=== PATIENT | female | born 1960 | race Caucasian/White ===

== ENCOUNTER 2017-01-30 14:07 | Emergency (ER) | payer OTHER ==
[~2017-01-30] VITALS: Ht 170.2 cm; Wt 61.0 kg
[~2017-01-30 14:07] MED LIST: CHLO10 PO; CHLO25 PO; FOLI1 PO; THIA100T PO
[2017-01-30 14:19] VITALS: BP 140/88; PULSE 80; RESP 19; TEMP 98.2; O2SAT 100
[2017-01-30 14:23] VITALS: BP 140/88; PULSE 99
[2017-01-30] MEDS ORDERED: LOSA50TA PO (14:27)
--- NOTE | 2017-01-30 14:36 | PD ---
HPI Chief Complaint: Alcohol/Drug Intoxication Time Seen by Provider: 14:26 Travel History International Travel<30 days: No Contact w/Intl Traveler<30days: No History of Present Illness HPI 56-year-old female here for evaluation of alcohol withdrawal. Patient reports to drinking at least 12 beers per day for the last several days. She reports a history of EtOH abuse and has experienced seizures in the past when withdrawing. She reports her last drink was last night. She is complaining of tremors nausea, vomiting. She is alert and answers questions appropriately. She comes in via EMS. Her vital signs are stable. She is tremulous. [facility] Past Medical History Anxiety: Yes Cardiovascular Problems: Yes Diminished Hearing: No Hypertension: Yes Pancreatitis: Yes ?: Not Menopausal: Yes Past Surgical History Other Surgery: Yes (BREAST REDUCTION) Social History Alcohol Use: Yes (1 PINT PER DAY) Tobacco Use: No (PT DENIES) Substance Use: Yes (LORTAB) Allergies-Medications (Allergen,Severity, Reaction): Coded Allergies: No Known Allergies (Unverified , 10/28/13) Reported Meds & Prescriptions Reported Meds & Active Scripts Active Chlordiazepoxide HCl 25 Mg Capsule 25 Mg PO TID Librium 10 mg Cap (Chlordiazepoxide) 10 Mg Cap 10 Mg PO ONCE 10 Days Thiamine HCl 100 Mg Tab 100 Mg PO DAILY Folate 1 Mg Tab (Folic Acid) 1 Mg Tab 1 Mg PO DAILY Librium 25 mg Cap (Chlordiazepoxide) 25 Mg Cap 25 Mg PO DAILY Reported Losartan (Losartan Potassium) 50 Mg Tab 50 Mg PO DAILY Review of Systems Except as stated in HPI: all other systems reviewed are Neg General / Constitutional: No: Fever Eyes: No: Visual changes HENT: No: Headaches Cardiovascular: No: Chest Pain or Discomfort Respiratory: No: Shortness of Breath Gastrointestinal: Positive: Nausea, Vomiting Neurologic: Positive: Tremor Psychiatric: Positive: Anxiety Physical Exam Narrative GENERAL: alert disheveled appearing female mildly tremulous SKIN: Warm and dry. HEAD: Normocephalic. EYES: No scleral icterus. No injection or drainage. NECK: Supple, trachea midline. No JVD or lymphadenopathy. CARDIOVASCULAR: Regular rate and rhythm without murmurs, gallops, or rubs. RESPIRATORY: Breath sounds equal bilaterally. No accessory muscle use. GASTROINTESTINAL: Abdomen soft, non-tender, nondistended. MUSCULOSKELETAL: No cyanosis, or edema. BACK: Nontender without obvious deformity. No CVA tenderness. Data Data Last Documented VS Vital Signs Date Time Temp Pulse Resp B/P (MAP) Pulse Ox O2 Delivery O2 Flow Rate FiO2 01/30/17 14:23 99 140/88 (105) 01/30/17 14:23 100 Room Air 01/30/17 14:19 98.2 19 Orders Orders Chlordiazepoxide (Librium) (01/30/17 15:15) MDM Medical Decision Making Medical Screen Exam Complete: Yes Emergency Medical Condition: Yes Differential Diagnosis ETOH abuse, alcohol withdrawal, Narrative Course 56-year-old female here for evaluation of alcohol withdrawal. Patient reports to drinking at least 12 beers per day for the last several months. She reports a history of EtOH abuse and has experienced seizures in the past when withdrawing. She reports her last drink was last night. She is complaining of tremors nausea, vomiting. She is alert and answers questions appropriately. She comes in via EMS. Her vital signs are stable. She is tremulous. Clinically I believe her alcohol withdrawal is mild and can be managed outpatient. She will be given one dose of Librium in the ER and continued to be monitored and then discharged home with referral to [facility] for alcohol detox and treatment. patient was observed in the ed she is clinically stable & ready for discharge. Diagnosis Primary Impression: Alcohol withdrawal Qualified Codes: F10.230 - Alcohol dependence with withdrawal, uncomplicated Referrals: [facility] Additional Instructions: Do not drink alcohol. Take the Librium as prescribed. Follow-up with [facility] for alcohol detox/treatment Scripts Chlordiazepoxide HCl (Chlordiazepoxide HCl) 25 Mg Capsule 25 MG PO TID for tremors, #9 Prov: Pascual Harris MD 01/30/17 Disposition: 01 DISCHARGE HOME Condition: Stable Francy Adams Jan 30, 2017 14:36
--- NOTE | 2017-01-30 14:36 | PD ---
HPI Chief Complaint: Alcohol/Drug Intoxication Time Seen by Provider: 14:26 Travel History International Travel<30 days: No Contact w/Intl Traveler<30days: No History of Present Illness HPI 56-year-old female here for evaluation of alcohol withdrawal. Patient reports to drinking at least 12 beers per day for the last several days. She reports a history of EtOH abuse and has experienced seizures in the past when withdrawing. She reports her last drink was last night. She is complaining of tremors nausea, vomiting. She is alert and answers questions appropriately. She comes in via EMS. Her vital signs are stable. She is tremulous. [facility] Past Medical History Anxiety: Yes Cardiovascular Problems: Yes Diminished Hearing: No Hypertension: Yes Pancreatitis: Yes ?: Not Menopausal: Yes Past Surgical History Other Surgery: Yes (BREAST REDUCTION) Social History Alcohol Use: Yes (1 PINT PER DAY) Tobacco Use: No (PT DENIES) Substance Use: Yes (LORTAB) Allergies-Medications (Allergen,Severity, Reaction): Coded Allergies: No Known Allergies (Unverified , 10/28/13) Reported Meds & Prescriptions Reported Meds & Active Scripts Active Chlordiazepoxide HCl 25 Mg Capsule 25 Mg PO TID Librium 10 mg Cap (Chlordiazepoxide) 10 Mg Cap 10 Mg PO ONCE 10 Days Thiamine HCl 100 Mg Tab 100 Mg PO DAILY Folate 1 Mg Tab (Folic Acid) 1 Mg Tab 1 Mg PO DAILY Librium 25 mg Cap (Chlordiazepoxide) 25 Mg Cap 25 Mg PO DAILY Reported Losartan (Losartan Potassium) 50 Mg Tab 50 Mg PO DAILY Review of Systems Except as stated in HPI: all other systems reviewed are Neg General / Constitutional: No: Fever Eyes: No: Visual changes HENT: No: Headaches Cardiovascular: No: Chest Pain or Discomfort Respiratory: No: Shortness of Breath Gastrointestinal: Positive: Nausea, Vomiting Neurologic: Positive: Tremor Psychiatric: Positive: Anxiety Physical Exam Narrative GENERAL: alert disheveled appearing female mildly tremulous SKIN: Warm and dry. HEAD: Normocephalic. EYES: No scleral icterus. No injection or drainage. NECK: Supple, trachea midline. No JVD or lymphadenopathy. CARDIOVASCULAR: Regular rate and rhythm without murmurs, gallops, or rubs. RESPIRATORY: Breath sounds equal bilaterally. No accessory muscle use. GASTROINTESTINAL: Abdomen soft, non-tender, nondistended. MUSCULOSKELETAL: No cyanosis, or edema. BACK: Nontender without obvious deformity. No CVA tenderness. Data Data Last Documented VS Vital Signs Date Time Temp Pulse Resp B/P (MAP) Pulse Ox O2 Delivery O2 Flow Rate FiO2 01/30/17 14:23 99 140/88 (105) 01/30/17 14:23 100 Room Air 01/30/17 14:19 98.2 19 Orders Orders Chlordiazepoxide (Librium) (01/30/17 15:15) MDM Medical Decision Making Medical Screen Exam Complete: Yes Emergency Medical Condition: Yes Differential Diagnosis ETOH abuse, alcohol withdrawal, Narrative Course 56-year-old female here for evaluation of alcohol withdrawal. Patient reports to drinking at least 12 beers per day for the last several months. She reports a history of EtOH abuse and has experienced seizures in the past when withdrawing. She reports her last drink was last night. She is complaining of tremors nausea, vomiting. She is alert and answers questions appropriately. She comes in via EMS. Her vital signs are stable. She is tremulous. Clinically I believe her alcohol withdrawal is mild and can be managed outpatient. She will be given one dose of Librium in the ER and continued to be monitored and then discharged home with referral to [facility] for alcohol detox and treatment. patient was observed in the ed she is clinically stable & ready for discharge. Diagnosis Primary Impression: Alcohol withdrawal Qualified Codes: F10.230 - Alcohol dependence with withdrawal, uncomplicated Referrals: [facility] Additional Instructions: Do not drink alcohol. Take the Librium as prescribed. Follow-up with [facility] for alcohol detox/treatment Scripts Chlordiazepoxide HCl (Chlordiazepoxide HCl) 25 Mg Capsule 25 MG PO TID for tremors, #9 Prov: Pascual Harris MD 01/30/17 Disposition: 01 DISCHARGE HOME Condition: Stable Francy Adams Jan 30, 2017 14:36
[2017-01-30] MEDS ORDERED: CHLO25CA9 PO (14:45)
[2017-01-30 16:57] VITALS: BP 138/68
--- NOTE | 2017-01-31 20:52 | EKG ---
Date Performed: 01/30/2017 Time Performed: 14:23:01 PTAGE: 56 years EKG: Sinus rhythm WITH SHORT [place] INTERVAL BORDERLINE ECG INTERPRETATION BASED ON A DEFAULT AGE OF 40 YEARS PREVIOUS TRACING : 10/28/2013 16.27 DOCTOR: Jaren Myers Interpretating Date/Time 01/31/2017 20:47:15
--- NOTE | 2017-01-31 20:52 | EKG ---
Date Performed: 01/30/2017 Time Performed: 14:23:01 PTAGE: 56 years EKG: Sinus rhythm WITH SHORT [place] INTERVAL BORDERLINE ECG INTERPRETATION BASED ON A DEFAULT AGE OF 40 YEARS PREVIOUS TRACING : 10/28/2013 16.27 DOCTOR: Jaren Myers Interpretating Date/Time 01/31/2017 20:47:15
--- NOTE | 2017-01-31 20:52 | EKG ---
Date Performed: 01/30/2017 Time Performed: 14:23:01 PTAGE: 56 years EKG: Sinus rhythm WITH SHORT [place] INTERVAL BORDERLINE ECG INTERPRETATION BASED ON A DEFAULT AGE OF 40 YEARS PREVIOUS TRACING : 10/28/2013 16.27 DOCTOR: Jaren Myers Interpretating Date/Time 01/31/2017 20:47:15
== END 2017-01-30 16:58 | disposition home or self-care (01) ==
LOC: NEPD 14:07
DX: F10.239 Alcohol dependence with withdrawal, unspecified (principal); R11.2 Nausea with vomiting, unspecified; R25.1 Tremor, unspecified; F41.9 Anxiety disorder, unspecified; I10 Essential (primary) hypertension; Z79.899 Other long term (current) drug therapy; Z87.19 Personal history of other diseases of the digestive system
CPT/HCPCS: 93005; 99283

== ENCOUNTER 2017-05-01 10:44 | Emergency (ER) | payer OTHER ==
[~2017-05-01] VITALS: Ht 170.2 cm; Wt 65.0 kg
[~2017-05-01 10:44] MED LIST changes: +CHLO25CA9 PO; +LOSA50TA PO
[2017-05-01 10:50] VITALS: BP 96/51; PULSE 101; RESP 14; TEMP 98.3; O2SAT 99
[2017-05-01] MEDS ORDERED: SODIUM CHLOR 0.9% 1000 ML INJ 1,000 ML IV ONE ×2 (11:30→13:15)
[2017-05-01] MEDS ORDERED: LORazepam 2 MG/ML VIAL IV PUSH ONE ×2 (11:30→15:15)
[2017-05-01 11:37] VITALS: O2SAT 94
--- NOTE | 2017-05-01 11:43 | PD ---
HPI Chief Complaint: Alcohol/Drug Intoxication Time Seen by Provider: 11:11 Travel History International Travel<30 days: No Contact w/Intl Traveler<30days: No Traveled to known affect area: No History of Present Illness HPI 57-year-old male that presents to the ED for evaluation of alcohol detox. Patient has a history of alcohol abuse and per patient she's been clean for 3 years but for the past 2 days she's been going back at it. Per patient she is feeling anxious and she takes chronic anxiety medication including lorazepam. She also has a history of insomnia and takes medications for this as well as for high blood pressure losartan. She states that she feels anxious and that she feels like she is trembling. Per patient she wants help with detox. She denies any falls or injuries. No chest pain or shortness of breath. Denies any urinary or bowel movement issues. Has no allergies to medication. Has not seen anybody for this. Per patient she last drank yesterday around midnight. Has no allergies to medication. States having mild pain 2 out of 10 on her body as body aches. She denies eating or drinking anything since alcohol yesterday. Came here on her own. Denies any other medical issues at this time. PFSH Past Medical History Anxiety: Yes Cardiovascular Problems: Yes Diminished Hearing: No Hypertension: Yes Pancreatitis: Yes Menopausal: Yes Past Surgical History Other Surgery: Yes (BREAST REDUCTION) Social History Alcohol Use: Yes (1 PINT PER DAY) Tobacco Use: No (PT DENIES) Substance Use: Yes (LORTAB) Allergies-Medications (Allergen,Severity, Reaction): Coded Allergies: No Known Allergies (Unverified , 10/28/13) Reported Meds & Prescriptions Reported Meds & Active Scripts Active Reported Lorazepam 0.5 Mg Tab 0.5 Mg PO DAILY PRN Trazodone (Trazodone HCl) 50 Mg Tab 50 Mg PO HS Losartan (Losartan Potassium) 50 Mg Tab 50 Mg PO DAILY Review of Systems Except as stated in HPI: all other systems reviewed are Neg Physical Exam Narrative GENERAL: SKIN: Warm and dry. HEAD: Atraumatic. Normocephalic. EYES: Pupils equal and round. No scleral icterus. No injection or drainage. ENT: No nasal bleeding or discharge. Mucous membranes pink and moist. Tongue is midline. No uvula deviation. NECK: Trachea midline. No JVD. CARDIOVASCULAR: Regular rate and rhythm. No murmurs, S3, S4. RESPIRATORY: No accessory muscle use. Clear to auscultation. Breath sounds equal bilaterally. GASTROINTESTINAL: Abdomen soft, non-tender, nondistended. Hepatic and splenic margins not palpable. MUSCULOSKELETAL: Extremities without clubbing, cyanosis, or edema. No obvious deformities. Full range of motion of the upper and lower extremities bilaterally. 2+ pulses bilaterally. NEUROLOGICAL: Awake and alert. No obvious cranial nerve deficits. Motor grossly within normal limits. Five out of 5 muscle strength in the arms and legs. Normal speech. PSYCHIATRIC: Intoxicated mood and affect; insight and judgment normal. Data Data Last Documented VS Vital Signs Date Time Temp Pulse Resp B/P (MAP) Pulse Ox O2 Delivery O2 Flow Rate FiO2 05/01/17 13:00 94 19 108/64 (79) 99 Room Air 05/01/17 10:50 98.3 Orders Orders Complete Blood Count With Diff (05/01/17 11:20) Comprehensive Metabolic Panel (05/01/17 11:20) Iv Access Insert/Monitor (05/01/17 11:20) Ecg Monitoring (05/01/17 11:20) Oximetry (05/01/17 11:20) Drug Screen, Random Urine (05/01/17 11:20) Alcohol (Ethanol) (05/01/17 11:20) Salicylates (Aspirin) (05/01/17 11:20) Tylenol (Acetaminophen) (05/01/17 11:20) Sodium Chlor 0.9% 1000 Ml Inj (Ns 1000 M (05/01/17 11:30) Lorazepam Inj (Ativan Inj) (05/01/17 11:30) Urinalysis - C+S If Indicated (05/01/17 12:46) Chest, Single Ap (05/01/17 ) Sodium Chlor 0.9% 1000 Ml Inj (Ns 1000 M (05/01/17 13:15) Ed Discharge Order (05/01/17 14:49) Labs Laboratory Tests Test 05/01/17 11:30 05/01/17 11:45 Urine Opiates Screen NEG Urine Barbiturates Screen NEG Urine Amphetamines Screen NEG Urine Benzodiazepines Screen POS Urine Cocaine Screen NEG Urine Cannabinoids Screen NEG White Blood Count 16.5 TH/MM3 Red Blood Count 5.06 MIL/MM3 Hemoglobin 12.6 GM/DL Hematocrit 39.9 % Mean Corpuscular Volume 78.9 FL Mean Corpuscular Hemoglobin 24.9 PG Mean Corpuscular Hemoglobin Concent 31.6 % Red Cell Distribution Width 22.5 % Platelet Count 402 TH/MM3 Mean Platelet Volume 8.1 FL Neutrophils (%) (Auto) 91.5 % Lymphocytes (%) (Auto) 5.5 % Monocytes (%) (Auto) 2.7 % Eosinophils (%) (Auto) 0.0 % Basophils (%) (Auto) 0.3 % Neutrophils # (Auto) 15.1 TH/MM3 Lymphocytes # (Auto) 0.9 TH/MM3 Monocytes # (Auto) 0.4 TH/MM3 Eosinophils # (Auto) 0.0 TH/MM3 Basophils # (Auto) 0.0 TH/MM3 CBC Comment DIFF FINAL Differential Comment Blood Urea Nitrogen 23 MG/DL Creatinine 1.60 MG/DL Random Glucose 92 MG/DL Total Protein 7.9 GM/DL Albumin 4.2 GM/DL Calcium Level 8.8 MG/DL Alkaline Phosphatase 114 U/L Aspartate Amino Transf (AST/SGOT) 37 U/L Alanine Aminotransferase (ALT/SGPT) 26 U/L Total Bilirubin 0.7 MG/DL Sodium Level 133 MEQ/L Potassium Level 4.5 MEQ/L Chloride Level 96 MEQ/L Carbon Dioxide Level 18.9 MEQ/L Anion Gap 18 MEQ/L Estimat Glomerular Filtration Rate 33 ML/MIN Salicylates Level LESS THAN 1.7 MG/DL Acetaminophen Level LESS THAN 2.0 MCG/ML Ethyl Alcohol Level 199 MG/DL MDM Medical Decision Making Medical Screen Exam Complete: Yes Emergency Medical Condition: Yes Medical Record Reviewed: Yes Interpretation(s) CBC & BMP Diagram 05/01/17 11:45 Total Protein 7.9, Albumin 4.2, Calcium Level 8.8, Alkaline Phosphatase 114, Aspartate Amino Transf (AST/SGOT) 37, Alanine Aminotransferase (ALT/SGPT) 26, Total Bilirubin 0.7 Last Impressions Chest X-Ray 05/01/17 0000 Signed Impressions: Service Date/Time: Monday, May 01, 2017 12:59 - CONCLUSION: Linear basilar atelectasis. No other acute cardiopulmonary disease identified. Thiago Perez MD tox positive for alcohol. Differential Diagnosis Alcohol intoxication versus alcohol withdrawals versus alcohol dependence versus detox versus medical clearance Narrative Course 57-year-old female that presents to the ED for evaluation of alcohol detox. Patient was properly examined and was found to have signs and symptoms consistent appears to be alcohol abuse. Patient will be given information for detox facility as she was told that we do not do detox in this facility. She for was found to be somewhat hypotensive. She does appear to have some tremors but no seizure-like activity. At this time her, and fluids and labs to medically clear her. She agrees with this plan. Labs were essentially normal, temperature appears to be dehydration. Patient was given 2 L of fluid with her blood pressure coming better. Patient was given Ativan with good results. My ED note was able to contact the [facility] and do have a bed available for detox. Patient was given option to follow up with them. She agrees with this plan. She will be discharged to [facility]. See ED worsening symptoms. Follow with PCP. Diagnosis Primary Impression: Alcohol abuse Patient Instructions: General Instructions Additional Instructions: We wish you the best with recovery. See ED worsening symptoms. Drink plenty of fluids. Med/Other Pt SpecificInfo: No Change to Meds Disposition: 01 DISCHARGE HOME Condition: Stable Elmer Conrad May 01, 2017 11:43
[2017-05-01] MEDS ORDERED: LORA0.5T PO (11:53)
[2017-05-01] MEDS ORDERED: TRAZ50TA12 PO (11:53)
[2017-05-01 12:37] LABS: AUTOMATED NEUTROPHIL # 15.1 TH/MM3 (1.8-7.7); BASOPHIL % 0.3 % (0.0-2.0); HEMATOCRIT 39.9 % (35.0-46.0); HEMOGLOBIN 12.6 GM/DL (11.6-15.3); LYMPH % 5.5 % (9.0-44.0); LYMPHOCYTE # 0.9 TH/MM3 (1.0-4.8); MEAN CELL VOLUME 78.9 FL (80.0-100.0); MEAN CORPUSCULAR HEMOGLOBIN 24.9 PG (27.0-34.0); MEAN CORPUSCULAR HGB CONC 31.6 % (32.0-36.0); MEAN PLATELET VOLUME 8.1 FL (7.0-11.0); MONO % 2.7 % (0.0-8.0); MONOCYTE # 0.4 TH/MM3 (0-0.9); NEUT % 91.5 % (16.0-70.0); PLATELET COUNT 402 TH/MM3 (150-450); RED BLOOD COUNT 5.06 MIL/MM3 (4.00-5.30); RED CELL DISTRIBUTION WIDTH 22.5 % (11.6-17.2); WHITE BLOOD COUNT 16.5 TH/MM3 (4.0-11.0)
[2017-05-01 13:00] VITALS: BP 108/64; PULSE 94; RESP 19; O2SAT 99
[2017-05-01 13:02] LABS: ALT (GPT) 26 U/L (10-53)
[2017-05-01 13:07] LABS: ALBUMIN 4.2 GM/DL (3.4-5.0); ALKALINE PHOSPHATASE 114 U/L (45-117); AST (GOT) 37 U/L (15-37); BICARBONATE 18.9 MEQ/L (21.0-32.0); BLOOD UREA NITROGEN 23 MG/DL (7-18); CALCIUM 8.8 MG/DL (8.5-10.1); CHLORIDE 96 MEQ/L (98-107); GLOMERULAR FILTRATION RATE 33 ML/MIN (>89); GLUCOSE,RANDOM 92 MG/DL (74-106); SODIUM (NA) 133 MEQ/L (136-145); TOTAL BILIRUBIN ADULT 0.7 MG/DL (0.2-1.0); TOTAL PROTEIN 7.9 GM/DL (6.4-8.2)
[2017-05-01 13:11] LABS: ACETAMINOPHEN LESS THAN 2.0 MCG/ML (10.0-30.0)
--- NOTE | 2017-05-01 13:52 | RADRPT ---
EXAM DATE/TIME: 05/01/2017 12:59 [place] COMPARISON: No previous studies available for comparison. INDICATIONS : Cough. Shortness of breath. MEDICAL HISTORY : Hypertension. SURGICAL HISTORY : None. ENCOUNTER: Initial ACUITY: 1 week PAIN SCORE: 0/10 LOCATION: Bilateral chest FINDINGS: Single AP view of the chest. Linear subsegmental atelectasis at the lung bases. Lungs otherwise clear . Cardiomediastinal silhouette within normal limits. No evidence of pleural effusion or pneumothorax. CONCLUSION: Linear basilar atelectasis. No other acute cardiopulmonary disease identified. Thiago Perez MD on May 01, 2017 at 13:47 Board Certified Radiologist. This report was verified electronically.
[2017-05-01 16:29] LABS: BACTERIA, URINE FEW /hpf; BILIRUBIN, URINE NEG (NEG); BLOOD, URINE SMALL (NEG); GLUCOSE,URINE NEG (NEG); HYALINE CAST, URINE 1 /lpf (RARE); KETONE, URINE NEG (NEG); MUCUS URINE FEW /lpf (OCC); NITRITE,URINE NEG (NEG); SQUAMOUS EPITHELIAL CELL URINE 6 /hpf (0-5); URINE COLOR YELLOW (YELLW/STRAW); URINE LEUKOCYTE ESTERASE LARGE (NEG)
[2017-05-01 17:03] VITALS: BP 158/77; PULSE 96; RESP 19; O2SAT 96
== END 2017-05-01 18:46 | disposition home or self-care (01) ==
LOC: NEPE 10:44
DX: F10.10 Alcohol abuse, uncomplicated (principal); F41.9 Anxiety disorder, unspecified; G47.00 Insomnia, unspecified; I10 Essential (primary) hypertension; Y90.6 Blood alcohol level of 120-199 mg/100 ml; Z79.899 Other long term (current) drug therapy
CPT/HCPCS: 71045; 80053; 80307; 81001; 85025; 87086; 96361; 96374; 96376; 99284; J2060; J7030

== ENCOUNTER 2017-09-25 21:27 | Emergency (ER) | payer OTHER ==
[~2017-09-25] VITALS: Ht 172.7 cm; Wt 65.0 kg
[~2017-09-25 21:27] MED LIST changes: -CHLO10 PO; -CHLO25 PO; -CHLO25CA9 PO; -FOLI1 PO; +LORA0.5T PO; -THIA100T PO; +TRAZ50TA12 PO
[2017-09-25 21:29] VITALS: BP 196/111; PULSE 72; RESP 18; TEMP 97.6; O2SAT 99
[2017-09-25] MEDS ORDERED: LEVO25TA4 PO (21:40)
[2017-09-25] MEDS ORDERED: blood pressure (21:40)
[2017-09-25 21:52] VITALS: BP 168/86
[2017-09-25] MEDS ORDERED: diphenhydrAMINE HCL 50 MG CAP PO ONE (22:15)
[2017-09-25] MEDS ORDERED: DEXAMETHASONE 6 MG TAB PO ONE (22:15)
--- NOTE | 2017-09-25 22:19 | PD ---
HPI Chief Complaint: Bite or Sting Time Seen by Provider: 22:06 Travel History International Travel<30 days: No Contact w/Intl Traveler<30days: No Traveled to known affect area: No History of Present Illness HPI 57-year-old white female presents emergency department with complains of possible insect bites. She states that she just moved into a new apartment this week. Since then she has noted raised red bumps along her arms and legs which are very pruritic in nature. Patient also states that she has had problems with swelling in her lower legs. She denies any fever chills. No chest pain or shortness of breath. No nausea vomiting. She has been eating and drinking normally. She is up-to-date with immunizations. [facility] Past Medical History Anxiety: Yes Cardiovascular Problems: Yes Diminished Hearing: No Hypertension: Yes Pancreatitis: Yes Tetanus Vaccination: < 5 Years ?: Not Menopausal: Yes Past Surgical History Other Surgery: Yes (BREAST REDUCTION) Social History Alcohol Use: No (History of alcohol abuse) Tobacco Use: No (PT DENIES) Substance Use: Yes (LORTAB) Allergies-Medications (Allergen,Severity, Reaction): Coded Allergies: No Known Allergies (Unverified Adverse Reaction, Unknown, 09/25/17) Reported Meds & Prescriptions Reported Meds & Active Scripts Active Reported [blood pressure] Levothyroxine (Levothyroxine Sodium) 25 Mcg Tab 25 Mcg PO DAILY Review of Systems Except as stated in HPI: all other systems reviewed are Neg Physical Exam Narrative GENERAL: This is a well-nourished, well-developed patient, in no apparent distress. SKIN: Patient has multiple raised erythematous papules in a linear line along her arms and legs consistent with bedbug bites. Warm and dry. HEAD: Atraumatic. Normocephalic. EYES: PERRL, EOMI, no discharge or injection. No scleral icterus. EARS: Clear NOSE: Nasal turbinates appear normal. THROAT: Mucosa pink and moist. Airway patent. NECK: Trachea midline. supple, moves head freely. LUNGS: Clear to auscultation. CV: Regular in rhythm. ABDOMEN: Soft nontender. EXT: No clubbing cyanosis or edema. Data Data Last Documented VS Vital Signs Date Time Temp Pulse Resp B/P (MAP) Pulse Ox O2 Delivery O2 Flow Rate FiO2 09/25/17 21:52 168/86 (113) 09/25/17 21:29 97.6 72 18 99 Orders Orders Diphenhydramine (Benadryl) (09/25/17 22:15) Dexamethasone (Decadron) (09/25/17 22:15) Ed Discharge Order (09/25/17 22:13) MDM Medical Decision Making Medical Screen Exam Complete: Yes Emergency Medical Condition: Yes Medical Record Reviewed: Yes Differential Diagnosis MDM: High Differential diagnoses: Abscess, folliculitis, cellulitis, lymphangitis, abrasion, contact dermatitis, bedbugs Narrative Course Patient's exam is consistent with bedbug bites. Diagnosis Primary Impression: Bedbug bite Qualified Codes: W57.XXXA - Bitten or stung by nonvenomous insect and other nonvenomous arthropods, initial encounter Patient Instructions: General Instructions Additional Instructions: Rest. 25-50 mg of Benadryl every 6 hours as needed for itching. 1% hydrocortisone cream 4 times daily to the rash. Notify the landlord of the bedbug exposure. Avoid any salty foods. Follow-up with a medical doctor in 1 week. Return to the ER for emergencies Med/Other Pt SpecificInfo: Wound Care Disposition: 01 DISCHARGE HOME Condition: Raymond Jeff Sep 25, 2017 22:19
== END 2017-09-25 22:48 | disposition home or self-care (01) ==
LOC: NEPD 21:27
DX: S40.862A Insect bite (nonvenomous) of left upper arm, initial encounter (principal); S40.861A Insect bite (nonvenomous) of right upper arm, initial encounter; S80.862A Insect bite (nonvenomous), left lower leg, initial encounter; S80.861A Insect bite (nonvenomous), right lower leg, initial encounter; W57.XXXA Bitten or stung by nonvenomous insect and other nonvenomous arthropods, initial encounter
CPT/HCPCS: 99283; J8540; Q0163

== ENCOUNTER 2017-10-19 09:07 | Observation (INO) ==
--- NOTE | 2017-10-19 09:25 | ED ---
HPI General Chief Complaint: Syncope Stated Complaint: Medical/Evac Time Seen by Provider: 10/19/17 09:19 Source: patient Mode of arrival: EMS Limitations: no limitations History of Present Illness HPI narrative: While the patient was had a DUI support group, the patient apparently became unresponsive and slumped over. EMS was called patient was found bradycardic in the 30s with a BGL that was normal 150..... Per patient she felt lightheaded dizzy and got diaphoretic prior to the event. Patient gives a history of a "benign" mass in her chest that is located between her esophagus her aorta and her heart, it is believed to be benign due to the shape of it, patient due to the location of the mass it was too dangerous to biopsy, patient is scheduled for outpatient PET scan by her primary care doctor eliza. Per patient she is on losartan Synthroid and metoprolol but she cannot recall the dosages MD complaint: loss of consciousness and felt faint Onset (ago): hour(s) (1) Prodromal symptoms: lightheaded and diaphoresis Witnessed: yes - by bystander (No seizure activity by witnesses) Context: at rest Injuries sustained associated with event: none Current symptoms: none Treatments prior to arrival: none Related Data Home Medications Medication Instructions Recorded Confirmed isosorbide mononitrate 10/19/17 10/19/17 levothyroxine mcg PO DAILY 10/19/17 losartan 100 mg PO DAILY 10/19/17 10/19/17 Allergies Allergy/AdvReac Type Severity Reaction Status Date / Time No Known Allergies Allergy Unverified 10/19/17 09:17 Review of Systems Except as stated in HPI: all other systems reviewed are negative PMFSH History History Provided By: Patient Medical History Medical History Bilateral tinnitus (Acute) Hypertension (Acute) Mass in chest (Acute) Surgical History Surgical History Hx of breast reduction, elective (Acute) Social History Social History Substance History: No History of Abuse Second Hand Smoke Exposure: Yes Smoking Status: Light tobacco smoker Tobacco Type: Cigarettes How Often Do You Have a Drink Containing Alcohol: Never Recent Travel in [facility] within the Last 8 Weeks: No Recent Out of Country Travel within the Last 8 Weeks: No Exam Narrative Exam Narrative: GENERAL: Well-nourished, well-developed patient in no apparent distress. SKIN: Warm and dry. HEAD: Atraumatic. Normocephalic. EYES: Pupils equal and round. No scleral icterus. No injection or drainage. ENT: No nasal bleeding or discharge. Mucous membranes pink and moist. NECK: Trachea midline. No JVD. CARDIOVASCULAR: Regular rate and rhythm. no rubs or gallops RESPIRATORY: No accessory muscle use. Clear to auscultation. Breath sounds equal bilaterally. GASTROINTESTINAL: Abdomen soft, non-tender, nondistended. No rebound or guarding MUSCULOSKELETAL: Extremities without clubbing, cyanosis, or edema. No obvious deformities. NEUROLOGICAL: Awake and alert. No obvious cranial nerve deficits. Motor grossly within normal limits. Five out of 5 muscle strength in the arms and legs. Normal speech. PSYCHIATRIC: Appropriate mood and affect; insight and judgment normal. Course Initial Documented Vital Signs Temperature 98.8 F 10/19/17 09:19 Pulse Rate 60 10/19/17 09:19 Respiratory Rate 16 10/19/17 09:19 Blood Pressure 178/85 H 10/19/17 09:19 Pulse Oximetry 100 10/19/17 09:19 Last Documented Vital Signs Temperature 98.8 F 10/19/17 09:19 Pulse Rate 60 10/19/17 09:19 Respiratory Rate 16 10/19/17 09:19 Blood Pressure 178/85 H 10/19/17 09:19 Pulse Oximetry 100 10/19/17 09:19 Medical Decision Making Differential Diagnosis Differential Diagnosis: Symptomatic bradycardia versus electrolyte abnormality versus ICH Discharge Plan Discharge Disposition Patient Disposition: 30 Still Patient Discharge Condition Condition: Stable Discharge Details Diagnosis: Syncope Physicians Team ED Provider: Zhen Shirley Rxs /Orders / Referrals /Forms Prescriptions: No Action losartan 100 mg Tablet 100 mg PO DAILY RF: 0 levothyroxine 13 mcg Capsule PO DAILY RF: 0 isosorbide mononitrate RF: 0 Status ED Status: With Doctor
[2017-10-19 09:54] LABS: Baso % (Auto) 0.3 % (0.0-2.0); Eos # (Auto) 0.1 th/mm3 (0.0-0.4); Eos % (Auto) 0.7 % (0.0-4.0); Hemoglobin 14.4 gm/dL (11.6-15.3); Lymph # (Auto) 1.2 th/mm3 (1.0-4.8); Lymph % (Auto) 14.5 % (9.0-44.0); Mean Corpuscular HGB Conc 32.8 % (32.0-36.0); Mean Corpuscular Hemoglobin 31.6 pg (27.0-34.0); Mean Corpuscular Volume 96.4 fL (80.0-100.0); Mean Platelet Volume 8.8 fL (7.0-11.0); Mono # (Auto) 0.5 th/mm3 (0.0-0.9); Mono % (Auto) 5.6 % (0.0-8.0); Neut # (Auto) 6.8 th/mm3 (1.8-7.7); Neut % (Auto) 78.9 % (16.0-70.0); Platelet Count 277 th/mm3 (150-450); Red Blood Count 4.56 mil/mm3 (4.00-5.30); White Blood Count 8.6 th/mm3 (4.0-11.0)
--- NOTE | 2017-10-19 09:56 | CT ---
EXAM DATE: 10/19/2017 9:41 AM EDT AGE/SEX: 57 years / Female INDICATIONS: Syncopal episode. Altered mental status. CLINICAL DATA: This is the patient's initial encounter. Patient reports that signs and symptoms have been present for 1 day and indicates a pain score of 0/10. MEDICAL/SURGICAL HISTORY: Hypertension. None. RADIATION DOSE: 39.31 CTDI (mGy) COMPARISON: [facility] [place]/O [place], 02/01/2017. . TECHNIQUE: CT of the head without contrast. Using automated exposure control and adjustment of the mA and/or kV according to patient size, radiation dose was kept as low as reasonably achievable to ob tain optimal diagnostic quality images. DICOM format image data is available electronically for revi ew and comparison. FINDINGS: There is no evidence for intracranial hemorrhage, mass effect, mass lesions, edema, or extr a-axial fluid collections. The visualized bony structures appear intact. The ventricles are normal size for the patient's age. There are no signs of acute infarction for technique. CONCLUSION: Unremarkable study. Electronically signed by: Nargis Mcdonald MD 10/19/2017 9:55 AM EDT
--- NOTE | 2017-10-19 10:03 | XR ---
EXAM DATE: 10/19/2017 9:57 AM EDT AGE/SEX: 57 years / Female INDICATIONS: . Short of breath after syncopal episode. CLINICAL DATA: This is the patient's initial encounter. Patient reports that signs and symptoms have been present for 1 day and indicates a pain score of 0/10. MEDICAL/SURGICAL HISTORY: None. None. COMPARISON: [facility] – [place], CHEST SINGLE AP, 05/01/2017. . FINDINGS: PA and lateral views of the chest demonstrate the lungs to be symmetrically aerated without evidence of mass, infiltrate or effusion. The cardiomediastinal contours are unremarkable. Osseous structures are intact. CONCLUSION: 1. No acute cardiopulmonary disease. Electronically signed by: Gordy Chisholm MD 10/19/2017 10:02 AM EDT
[2017-10-19 10:15] LABS: Albumin 3.7 g/dL (3.4-5.0); Anion Gap 11 meq/L (5-15); Aspartate Aminotransferase 14 U/L (15-37); Blood Urea Nitrogen 13 mg/dL (7-18); Carbon Dioxide 22.1 meq/L (21.0-32.0); Chloride 106 meq/L (98-107); Glomerular Filtration Rate 64 mL/min (>89); Glucose,Random 132 mg/dL (74-106); Potassium 4.1 meq/L (3.5-5.1); Sodium 139 meq/L (136-145)
[2017-10-19 10:17] LABS: Alanine Aminotransferase 18 U/L (10-53)
[2017-10-19 10:20] LABS: Alkaline Phosphatase 62 U/L (45-117); Total Protein 6.6 g/dL (6.4-8.2)
[2017-10-19 10:22] LABS: Activated Partial Thrombo Time 22.6 sec (24.3-30.1); INR 1.1 Ratio; Prothrombin Time 10.7 sec (9.8-11.6)
--- NOTE | 2017-10-19 11:39 | P.HPIM ---
History of Present Illness Primary Care Physician: Alba Mitchell Chief Complaint: ' I passed out'. History of Present Illness: patient is a 57 y/o female with history of hypertension and hypothyroidism who presented to ER with syncope. she says that she was at her usual state of health till around 8;30 this morning when she passed out. she says that she was sitting at the time when she started to have some chest pressure, dizziness, nausea and then she passed out. there was no witness seizure at the time although she was feeling anxious at that moment.she was found to be bardycardic at the time.she says that her BP was somewhat uncontrolled and the dose of her Losartan was increased above five months ago. she had another syncopal episode a few months ago.she says that she was found to have a mass in the chest a few years ago but she was told by the CT surgeon that it could not be biopsied. Review of Systems All other systems reviewed negative except as stated in HPI [facility] - History History Provided By: Patient - Medical History Medical History: Medical History (Last Reviewed 10/19/17 @ 09:39 by Zhen Shirley) Bilateral tinnitus Hypertension Mass in chest - Surgical History Surgical History: Surgical History (Last Reviewed 10/19/17 @ 09:39 by Zhen Shirley) Hx of breast reduction, elective - Tobacco History Second Hand Smoke Exposure: Yes Tobacco Use In Past 30 Days: Yes Smoking Status: Light tobacco smoker Tobacco Type: Cigarettes - Alcohol History How Often Do You Have a Drink Containing Alcohol: Never - Substance Use History Substance History: No History of Abuse - Travel History Recent Travel in the [place] Within the Last 8 Weeks: No Recent Travel Out of the Country Within the Last 8 Weeks: No - Immunization History Tetanus Immunization: <5 Years Hx Influenza Vaccine This Season: No Medications and Allergies Allergies Allergy/AdvReac Type Severity Reaction Status Date / Time No Known Allergies Allergy Unverified 10/19/17 09:17 Home Medications Medication Instructions Recorded Confirmed Type isosorbide mononitrate 10/19/17 10/19/17 History levothyroxine mcg PO DAILY 10/19/17 History losartan 100 mg PO DAILY 10/19/17 10/19/17 History Exam Vital signs: Vital Signs 10/19/17 09:19 Temperature 98.8 F Pulse Rate 60 Respiratory Rate 16 Blood Pressure 178/85 H Pulse Oximetry 100 Intake & Output 10/18/17 10/19/17 10/19/17 18:59 06:59 18:59 Weight 65.771 kg - Constitutional no acute distress - Routine HEENT Exam Head: Present: normocephalic, atraumatic Eye: Present: PERRL - Routine Neck Exam Present: supple, full ROM - Routine Respiratory Exam Present: CTA bilaterally - Routine Cardiovascular Exam Present: RRR - Routine Abdominal Exam Present: soft - Routine Extremities Exam Comments: no pedal edema. - Routine Neurological Exam Present: alert, oriented X3 Results - Labs CBC & Chem 7: 10/19/17 09:30 10/19/17 09:30 Labs: Short CBC 10/19/17 Range/Units 09:30 WBC 8.6 (4.0-11.0) th/mm3 Hgb 14.4 (11.6-15.3) gm/dL Hct 44.0 (35.0-46.0) % Plt Count 277 (150-450) th/mm3 BMP 10/19/17 09:30 Sodium 139 Potassium 4.1 Chloride 106 Carbon Dioxide 22.1 BUN 13 Creatinine 0.91 Calcium 9.0 Cardiac Enzymes 10/19/17 Range/Units 09:30 Troponin I Less than 0.02 L (0.02-0.05) ng/mL Liver Function 10/19/17 Range/Units 09:30 Total Bilirubin 0.5 (0.2-1.0) mg/dL AST 14 L (15-37) U/L ALT 18 (10-53) U/L Alkaline Phosphatase 62 (45-117) U/L Albumin 3.7 (3.4-5.0) g/dL - Imaging Impressions Chest X-Ray 10/19/17 09:19 CONCLUSION: 1. No acute cardiopulmonary disease. Head CT 10/19/17 09:19 CONCLUSION: Unremarkable study. Caprini VTE Risk Assessment Caprini VTE Risk Assessment: No/Low Risk (score <= 1) Caprini Risk Assessment Model: Point Value = 1 Point Value = 2 Point Value = 3 Point Value = 5 Age 41-60 Minor surgery BMI > 25 kg/m2 Swollen legs Varicose veins or History of unexplained or recurrent spontaneous Oral contraceptives or hormone replacement Sepsis (< 1 month) Serious lung disease, including pneumonia (< 1 month) Abnormal pulmonary function Acute myocardial infarction Congestive heart failure (< 1 month) History of inflammatory bowel disease Medical patient at bed rest Age 61-74 Arthroscopic surgery Major open surgery (> 45 min) Laparoscopic surgery (> 45 min) Malignancy Confined to bed (> 72 hours) Immobilizing plaster cast Central venous access Age >= 75 History of VTE Family history of VTE Factor V Leiden Prothrombin [id number] Lupus anticoagulant Anticardiolipin antibodies Elevated serum homocysteine Heparin-induced thrombocytopenia Other congenital or acquired thrombophilia Stroke (< 1 month) Elective arthroplasty Hip, pelvis, or leg fracture Acute spinal cord injury (< 1 month) Prophylaxis Regimen: Total Risk Factor Score Risk Level Prophylaxis Regimen 0-1 Low Early ambulation 2 Moderate Order ONE of the following: *Sequential Compression Device (SCD) *Heparin 5000 units SQ BID 3-4 Higher Order ONE of the following medications: *Heparin 5000 units SQ TID *Enoxaparin/Lovenox 40 mg SQ daily (WT < 150 kg, CrCl > 30 mL/min) *Enoxaparin/Lovenox 30 mg SQ daily (WT < 150 kg, CrCl > 10-29 mL/min) *Enoxaparin/Lovenox 30 mg SQ BID (WT < 150 kg, CrCl > 30 mL/min) AND/OR *Sequential Compression Device (SCD) 5 or more Highest Order ONE of the following medications: *Heparin 5000 units SQ TID (Preferred with Epidurals) *Enoxaparin/Lovenox 40 mg SQ daily (WT < 150 kg, CrCl > 30 mL/min) *Enoxaparin/Lovenox 30 mg SQ daily (WT < 150 kg, CrCl > 10-29 mL/min) *Enoxaparin/Lovenox 30 mg SQ BID (WT < 150 kg, CrCl > 30 mL/min) AND *Sequential Compression Device (SCD) Assessment and Plan - Plan A/P - syncope continue to monitor on telemetry. hold BP meds and check for orthostatic hypotension. check echo and carotid doppler. -bradycardia- hold Propranolol and check TSH- continue to monitor. -chest pain- trend the cardiac enzymes. -questionable mass in the chest- patient says that it was diagnosed few years ago and evaluated by CT surgery- will obtain the result from PCP. -hypothyroidism;will verify and resume home meds. Discussed Condition With: ER physician and the RN. Discharge Planning: when w/u completed.
--- NOTE | 2017-10-19 12:34 | US ---
EXAM DATE: 10/19/2017 12:15 PM EDT AGE/SEX: 57 years / Female INDICATIONS: Syncope. CLINICAL DATA: This is the patient's initial encounter. Patient reports that signs and symptoms have been present for 1 day and indicates a pain score of 7/10. MEDICAL/SURGICAL HISTORY: . Hypertension. Mass cardiothoracic cavity. . Breast reduction. Ar m surgery. Tonsillectomy. Hernia repair. COMPARISON: No prior exams available for comparison. VELOCITY PARAMETERS: ICA/CCA Ratio: Right 0.6 , Left 1.8 ICA: Right 42 cm/sec, Left 148 cm/sec CCA: Right 73 cm/sec, Left 83 cm/sec ECA: Right 63 cm/sec, Left 50 cm/sec Vertebral: Right 89 cm/sec antegrade, Left 126 cm/sec antegrade FINDINGS: Right Carotid: Mild arteriosclerotic plaque is visualized.The waveforms are within normal limits. Left Carotid: Elevated flow velocity in the distal ICA. No significant plaque is visualized. The wave forms are within normal limits. Other: None. CONCLUSION: 1. Right Internal Carotid Artery: No evidence of flow-limiting stenosis. Left Internal Carotid Artery: Flow velocity acceleration in the distal ICA which may reflect atherosc lerotic disease, FMD or vessel tortuosity. Further evaluation with CTA examination of the arch and ca rotids is recommended Electronically signed by: Christ Osei MD 10/19/2017 12:33 PM EDT
[2017-10-19] MEDS ORDERED: ALPRAZolam 0.25 MG Tablet PO PRN (13:00)
[2017-10-19] MEDS: Acetaminophen 325 MG Tablet PO PRN ×3 (13:07→21:49)
[2017-10-19] MEDS: Sodium Chlor 0.9% Inj 500 ML IV.CONT SCH (15:49)
--- NOTE | 2017-10-19 16:21 | ECHRPT ---
Indication: chest pain CONCLUSIONS The left ventricular systolic function is hyperdynamic with an estimated ejection fraction in the ra nge of 65- 70%. Normal left ventricular size. Wall thickness is normal. No regional wall motion abnormalities are present. There is trace tricuspid valve regurgitation. Normal estimated pulmonary pressures. BP: / HR: Rhythm: Sinus MEASUREMENTS (Male / Female) Normal Values Technical Quality:Excellent 2D ECHO LV Diastolic Diameter PLAX 4.2 cm 4.2 - 5.9 / 3.9 - 5.3 cm LV Systolic Diameter PLAX 2.8 cm IVS Diastolic Thickness 1.1 cm 0.6 - 1.0 / 0.6 - 0.9 cm LVPW Diastolic Thickness 1.1 cm 0.6 - 1.0 / 0.6 - 0.9 cm LV Relative Wall Thickness 0.5 RV Internal Dim ED PLAX 2.6 cm LVOT Diameter 1.9 cm LA Systolic Diameter LX 3.2 cm 3.0 - 4.0 / 2.7 - 3.8 cm M-MODE Aortic Root Diameter MM 2.4 cm LA Systolic Diameter MM 3.1 cm LA Ao Ratio MM 1.3 AV Cusp Separation MM 2.1 cm DOPPLER AV Peak Velocity 141.0 cm/s AV Peak Gradient 8.0 mmHg LVOT Peak Velocity 112.0 cm/s LVOT Peak Gradient 5.0 mmHg AV Area Cont Eq pk 2.3 cm MV Area PHT 3.1 cm Mitral E Point Velocity 71.1 cm/s Mitral A Point Velocity 76.0 cm/s Mitral E to A Ratio 0.9 LV E' Lateral Velocity 6.4 cm/s Mitral E to LV E' Lateral Ratio 11.1 LV E' Septal Velocity 5.7 cm/s Mitral E to LV E' Septal Ratio 12.6 TR Peak Velocity 220.0 cm/s TR Peak Gradient 19.4 mmHg Right Atrial Pressure 10.0 mmHg Pulmonary Artery Systolic Pressu 29.4 mmHg Right Ventricular Systolic Press 29.4 mmHg PV Peak Velocity 71.9 cm/s PV Peak Gradient 2.1 mmHg FINDINGS LEFT VENTRICLE The left ventricular systolic function is hyperdynamic with an estimated ejection fraction in the ra nge of 65- 70%. Normal left ventricular size. Wall thickness is normal. No regional wall motion abnormalities are present. RIGHT VENTRICLE Normal right ventricular size and systolic function. LEFT ATRIUM The left atrial size is normal. RIGHT ATRIUM The right atrial size is normal. ATRIAL SEPTUM Normal atrial septal thickness without atrial level shunting by limited color doppler interrogation. AORTA The aortic root and proximal ascending aorta are normal in size on limited imaging. MITRAL VALVE Structurally normal mitral valve. No mitral valve stenosis or regurgitation. AORTIC VALVE Trileaflet aortic valve. No aortic valve stenosis or regurgitation. TRICUSPID VALVE Structurally normal tricuspid valve. There is trace tricuspid valve regurgitation. Normal estimated pulmonary pressures. PULMONARY VALVE No pulmonary valve regurgitation or stenosis. VESSELS The inferior vena cava is normal in size. PERICARDIUM No pericardial effusion. Fermin Yang MD, FACC, [facility] [place] (Electronically Signed) Final Date:19 October 2017 16:20
[2017-10-19] MEDS ORDERED: ALPRAZolam 0.25 MG Tablet PO ONE (17:17)
--- NOTE | 2017-10-19 20:19 | ECG ---
Date Performed: 10/19/2017 Time Performed: 09:34:41 PTAGE: 57 years EKG: SINUS BRADYCARDIA WITH OCCASIONAL SUPRAVENTRICULAR PREMATURE COMPLEXES BORDERLINE ECG PREVIOUS TRACING : 01/30/2017 14.23 No significant change DOCTOR: Shivam Adan Interpretating Date/Time 10/19/2017 20:19:10
[2017-10-20] MEDS: ALPRAZolam 0.25 MG Tablet PO PRN ×2 (00:22→06:24)
[2017-10-20] MEDS: Sodium Chlor 0.9% Inj 500 ML IV.CONT SCH (01:01)
[2017-10-20] MEDS: Acetaminophen 325 MG Tablet PO PRN ×2 (06:24→22:41)
--- NOTE | 2017-10-20 09:46 | P.PN ---
Subjective Interval history: Follow-up visit syncope. Patient seen and examined today. Reports she is very anxious. States "please did not discharge me, please do not discharge me." Discussed with patient results of her diagnostic tests which has been negative including troponin. Echocardiogram EF of 65-70%. Discussed with patient if she is taking levothyroxine, Synthroid medication and she states yes. She does not remember the dose. Ask what pharmacy she is using she states [facility] which would [place]. She is requesting for Xanax. States that really needs some Xanax right now. Patient states she was on Lorazepam before and duloxetine given by her PCP Dr. Garces. States that she missed her appointment has not been able to fill the medication. Patient does not know dosages of her medications nor the medications that she is taking except for requesting for Xanax. Appears to be drug-seeking. History of polysubstance abuse including EtOH. She had no U tox done during this admission. States that she has bilateral lower extremity swelling which is hurting her and requesting for Lasix. States she is very weak. Physical Exam Vital signs: Vital Signs 10/19/17 13:12 10/19/17 14:04 10/19/17 15:49 Temperature Pulse Rate 63 69 Respiratory Rate 22 16 20 Blood Pressure 163/81 H 143/88 H Pulse Oximetry 10/19/17 20:00 10/19/17 22:58 10/20/17 00:00 Temperature 99.0 F 98.9 F Pulse Rate 66 61 63 Respiratory Rate 16 16 Blood Pressure 134/76 120/68 Pulse Oximetry 97 98 10/20/17 03:38 10/20/17 04:00 10/20/17 07:15 Temperature 98.8 F 98.2 F Pulse Rate 77 58 L 67 Respiratory Rate 16 16 Blood Pressure 169/94 H 169/85 H Pulse Oximetry 99 96 Intake & Output 10/19/17 10/20/17 10/20/17 18:59 06:59 18:59 Intake Total 500 / 500 Balance 500 / 500 Weight 65.771 kg Intake: IV 500 / 500 NS Inj 500 ML @ 50 mls/hr IV. 500 / 500 CONT .Q10H SANIYA Rx#:[id number] Other: Date of Last Bowel Movement 10/19/17 Weight On Admission 65.771 kg Narrative: GENERAL: This is a well-nourished, well-developed patient, in no apparent distress. SKIN: Warm and dry HEENT: Normocephalic. Pupils equal round and reactive. Nose without bleeding. Airway patent. NECK: Trachea midline. CARDIOVASCULAR: Regular rate and rhythm without murmurs, gallops, or rubs. RESPIRATORY: Clear to auscultation. Breath sounds equal bilaterally. No wheezes , rales, or rhonchi. GASTROINTESTINAL: Abdomen soft, non-tender, nondistended. Bowel Sounds normoactive x4. MUSCULOSKELETAL: Extremities without clubbing, cyanosis, or edema. NEUROLOGICAL: Awake and alert. Oriented to place, person. No focal neuro deficit. Moves all extremities. Normal speech. Results - Labs CBC & Chem 7: 10/19/17 09:30 10/20/17 10:55 Laboratory Results - last 24 hr 10/19/17 10/19/17 10/19/17 09:30 09:30 09:30 WBC 8.6 RBC 4.56 Hgb 14.4 Hct 44.0 MCV 96.4 MCH 31.6 MCHC 32.8 RDW 14.0 Plt Count 277 MPV 8.8 Neut % (Auto) 78.9 H Lymph % (Auto) 14.5 Hitchcock % (Auto) 5.6 Eos % (Auto) 0.7 Baso % (Auto) 0.3 Neut # (Auto) 6.8 Lymph # (Auto) 1.2 Hitchcock # (Auto) 0.5 Eos # (Auto) 0.1 Baso # (Auto) 0.0 WBC Differential . Differential Comment Auto diff final PT 10.7 INR 1.1 APTT 22.6 L D-Dimer Quant (PE/DVT) Less than 0.19 Sodium 139 Potassium 4.1 Chloride 106 Carbon Dioxide 22.1 Anion Gap 11 BUN 13 Creatinine 0.91 Estimated GFR 64 L Random Glucose 132 H Calcium 9.0 Total Bilirubin 0.5 AST 14 L ALT 18 Alkaline Phosphatase 62 Troponin I Less than 0.02 L B-Natriuretic Peptide Total Protein 6.6 Albumin 3.7 TSH 10/19/17 10/19/17 10/19/17 09:30 09:30 13:05 WBC RBC Hgb Hct MCV MCH MCHC RDW Plt Count MPV Neut % (Auto) Lymph % (Auto) Hitchcock % (Auto) Eos % (Auto) Baso % (Auto) Neut # (Auto) Lymph # (Auto) Hitchcock # (Auto) Eos # (Auto) Baso # (Auto) WBC Differential Differential Comment PT INR APTT D-Dimer Quant (PE/DVT) Sodium Potassium Chloride Carbon Dioxide Anion Gap BUN Creatinine Estimated GFR Random Glucose Calcium Total Bilirubin AST ALT Alkaline Phosphatase Troponin I Less than 0.02 L B-Natriuretic Peptide 27 Total Protein Albumin TSH 7.410 H 10/19/17 17:41 WBC RBC Hgb Hct MCV MCH MCHC RDW Plt Count MPV Neut % (Auto) Lymph % (Auto) Hitchcock % (Auto) Eos % (Auto) Baso % (Auto) Neut # (Auto) Lymph # (Auto) Hitchcock # (Auto) Eos # (Auto) Baso # (Auto) WBC Differential Differential Comment PT INR APTT D-Dimer Quant (PE/DVT) Sodium Potassium Chloride Carbon Dioxide Anion Gap BUN Creatinine Estimated GFR Random Glucose Calcium Total Bilirubin AST ALT Alkaline Phosphatase Troponin I Less than 0.02 L B-Natriuretic Peptide Total Protein Albumin TSH - Imaging Impressions Carotid Doppler Study 10/19/17 00:00 CONCLUSION: 1. Right Internal Carotid Artery: No evidence of flow-limiting stenosis. Left Internal Carotid Artery: Flow velocity acceleration in the distal ICA which may reflect atherosclerotic disease, FMD or vessel tortuosity. Further evaluation with CTA examination of the arch and carotids is recommended Chest X-Ray 10/19/17 09:19 CONCLUSION: 1. No acute cardiopulmonary disease. Head CT 10/19/17 09:19 CONCLUSION: Unremarkable study. Assessment and Plan - Plan Patient is a 57 y/o female with history of hypertension and hypothyroidism who presented to ER with syncope. Syncope -Continue telemetry for now. Hold BP meds, check orthostatic BP. -CT negative -Trop negative. ECHO EF 65-70% -CXR no acute process -Carotid studies showed Right Internal Carotid Artery: No evidence of flow- limiting stenosis. Left Internal Carotid Artery: Flow velocity acceleration in the distal ICA which may reflect atherosclerotic disease, FMD or vessel tortuosity. Further evaluation with CTA examination of the arch and carotids is recommended -Verified [facility] pharmacy, patient is not on [facility] [place] her previous medications was [facility] pharmacy in [facility] and she only takes vitamin B, folic acid, chlordiazepoxide which she has not picked up. Review of E force patient is not on any narcotic or benzo medication. She claims to be on Xanax and Lorazepam but has not shown in any of the [facility] for a year. Bradycardia Abnormal TSH Hypothyroidism -Per review of [facility] pharmacy patient is not on any levothyroxine. Patient states that she is on levothyroxine and unable to tell the dose. -Elevated TSH, will check T4 -Provided patient with levothyroxine 50 mcg 1 dose -On exam no bradycardia noted. Chest mass -questionable mass in the chest- patient says that it was diagnosed few years ago and evaluated by CT surgery -will obtain the result from PCP. DVT Prop SCDs Code Status: Full Code Discussed Condition With: Patient, nursing Discharge Planning: DC home today
[2017-10-20] MEDS ORDERED: Levothyroxine 50 MCG Tablet PO ONE ×2 (09:56→19:30)
[2017-10-20 11:48] LABS: Anion Gap 6 meq/L (5-15); Blood Urea Nitrogen 10 mg/dL (7-18); Calcium 8.5 mg/dL (8.5-10.1); Carbon Dioxide 26.9 meq/L (21.0-32.0); Chloride 110 meq/L (98-107); Glomerular Filtration Rate Greater Than 89 mL/min (>89); Glucose,Random 90 mg/dL (74-106); Sodium 143 meq/L (136-145)
--- NOTE | 2017-10-20 15:32 | P.PNADD ---
Addendum to Inpatient Note Reason for Addendum: Additional Documentation Additional information: Patient states to the nurse she wanted Xanax and pain medication. Appears to have drug seeking behavior. Patient states that she has a different name that is why we could not verify her. She given name of Andra Schmid with a [place] ID that has a cut on the top side portion, possibly invalid. She appears on the photo. 1960. E force verified with her new name and date of . Patient was prescribed Lorazepam 1 mg by her PCP Dr. Mitchell last . She never had a follow-up. She has [place] was provided by multiple physicians what appears to be as ED docs as the medication is only good for 6-[address] Zuleta. We will not give the patient any narcotics or any benzodiazepines. All her diagnostic studies have been negative except for CTA that she can do as outpatient. Plan to discharge home today. [facility] pharmacy called and verified her medications under name Andra Schmid. She takes [place] Thyroid 30mg daily, losartan 100mg daily. Previously has a script for Isosorbide few months back according to pharmacy but was never refilled. Will DC patient with previous medications. T4 WNL. Follow up with PCP. Discharge patient to home Condition on discharge: Stable, improved Cardiac Diet as tolerated Ad Marisela activity Rx written: resume home meds Follow-up with primary care physician
[2017-10-21] MEDS: Acetaminophen 325 MG Tablet PO PRN (05:42)
[2017-10-21] MEDS ORDERED: Furosemide 40 MG Tablet PO ONE (09:00)
[2017-10-21] MEDS ORDERED: Furosemide 20 MG Tablet PO ONE (09:00)
--- NOTE | 2017-10-21 09:34 | P.PN ---
Subjective Interval history: Follow-up visit syncope. Patient seen and examined today. Reports she is weak. States she gets dizzy when she get up. Has been noted to be walking around going to the bathroom. States if she could stay longer. Discussed with patient that all of her lab values including her diagnostic tests have been negative and we have adjusted her medications. She needs to continue with blood pressure medication and new medication for levothyroxine was also provided. Discussed with patient will not give her any benzodiazepines. States that she does not want to be on it because she has a DUI. Will provide meclizine. Denies pain and discomfort. Denies SOB/ dyspnea. Denies chest pain , palpitations, headaches. Denies fevers, chills, n/v/d. Denies dysuria. Physical Exam Vital signs: Vital Signs 10/20/17 12:00 10/20/17 16:00 10/20/17 19:22 Temperature 98.1 F 98.3 F 98.9 F Pulse Rate 66 63 62 Respiratory Rate 20 24 16 Blood Pressure 172/94 H 173/82 H 173/80 H Pulse Oximetry 100 97 96 10/20/17 20:00 10/20/17 23:34 10/21/17 03:24 Temperature 97.9 F 98.2 F Pulse Rate 63 65 Respiratory Rate 18 16 16 Blood Pressure 128/65 162/76 H Pulse Oximetry 98 100 10/21/17 07:15 Temperature 98.8 F Pulse Rate 66 Respiratory Rate 18 Blood Pressure 166/77 H Pulse Oximetry 98 Intake & Output 10/20/17 10/21/17 10/21/17 18:59 06:59 18:59 Intake Total 500 / 500 Balance 500 / 500 Intake: Oral 500 / 500 Other: # Urine Diapers 6 Date of Last Bowel Movement 10/19/17 Narrative: GENERAL: This is a well-nourished, well-developed patient, in no apparent distress. SKIN: Warm and dry HEENT: Normocephalic. Pupils equal round and reactive. Nose without bleeding. Airway patent. NECK: Trachea midline. CARDIOVASCULAR: Regular rate and rhythm without murmurs, gallops, or rubs. RESPIRATORY: Clear to auscultation. Breath sounds equal bilaterally. No wheezes , rales, or rhonchi. GASTROINTESTINAL: Abdomen soft, non-tender, nondistended. Bowel Sounds normoactive x4. MUSCULOSKELETAL: Extremities without clubbing, cyanosis, or edema. NEUROLOGICAL: Awake and alert. Oriented to place, person. No focal neuro deficit. Moves all extremities. Normal speech. Results - Labs CBC & Chem 7: 10/19/17 09:30 10/20/17 10:55 Laboratory Results - last 24 hr 10/20/17 10/20/17 10:55 10:55 Sodium 143 Potassium 4.0 Chloride 110 H Carbon Dioxide 26.9 Anion Gap 6 BUN 10 Creatinine 0.66 Estimated GFR Greater than 89 Random Glucose 90 Calcium 8.5 Free T4 1.03 Assessment and Plan - Plan Patient is a 57 y/o female with history of hypertension and hypothyroidism who presented to ER with syncope. Syncope -Continue telemetry for now. Hold BP meds, check orthostatic BP. -CT negative -Trop negative. ECHO EF 65-70% -CXR no acute process -Carotid studies showed Right Internal Carotid Artery: No evidence of flow- limiting stenosis. Left Internal Carotid Artery: Flow velocity acceleration in the distal ICA which may reflect atherosclerotic disease, FMD or vessel tortuosity. Further evaluation with CTA examination of the arch and carotids is recommended -Verified [facility], [facility] [employer] [facility] her previous medications was [facility] and she only takes vitamin B, folic acid, chlordiazepoxide which she has not picked up. Review of [facility] patient is not on any narcotic or benzo medication. She claims to be on Xanax and Lorazepam but has not shown in any of the [facility] for a year. -Patient states she has a different name. Andra Schmid. [employer] verified with her new name and date of . Patient was prescribed Lorazepam 1 mg by her PCP Dr. Mitchell last . She never had a follow-up. -[facility] called and verified her medications under name Andra Schmid. She takes [place] Thyroid 30mg daily, losartan 100mg daily. Previously has a script for Isosorbide few months back according to pharmacy but was never refilled. Will DC patient with previous medications. T4 WNL. Follow up with PCP. -Plan to DC home today. Did not go home yesterday, no ride, avoided going home Bradycardia Abnormal TSH Hypothyroidism -Per review of [facility] pharmacy patient is not on any levothyroxine. Patient states that she is on levothyroxine and unable to tell the dose. -Elevated TSH, WNL T4 -Provided patient with levothyroxine 50 mcg 1 dose -Started levothyroxine 25 mcg daily. Previously on [place] Thyroid medication. Discussed with patient she needs to follow-up with PCP to check TSH in 6-8 weeks. -On exam no bradycardia noted. Improved HR Hypertension -Restart BP meds -Will DC with BP meds Dizziness, weakness -Meclizine as needed -Patient has been walking around the unit but complains about dizziness. She appears to be coming up with reasons not to be discharged. When asked if she is hiding from someone or she is afraid of going home she states no but would like to stay after lunch so she can eat. Chest mass -questionable mass in the chest- patient says that it was diagnosed few years ago and evaluated by CT surgery -CXR no mass noted DVT Prop SCDs Code Status: Full code Discussed Condition With: Patient, nursing, Dr. Zuleta Discharge Planning: DC home today
[2017-10-21 10:07] LABS: Amphetamine Screen,Urine Neg (Neg); Barbiturate Screen,Urine Neg (Neg); Cannabinoid Screen,Urine Neg (Neg); Cocaine Screen,Urine Neg (Neg)
[2017-10-21 10:09] LABS: Opiate Screen,Urine Neg (Neg)
== END 2017-10-21 14:18 | disposition home or self-care (01) ==
LOC: NEPGCP 09:07 → NEPE 09:07 → NEDA 09:07 → NEPGCP 16:42
PROVIDERS: ADMIT Internal Medicine; ATTEND Internal Medicine

== ENCOUNTER 2018-03-20 21:38 | Inpatient (IN) ==
[2018-03-20] MEDS ORDERED: Thiamine Inj 100 MG in Sodium Chlor 0.9% Inj 100 ML IV.SIG ONE (21:49)
--- NOTE | 2018-03-20 21:56 | ED ---
HPI General Chief Complaint: Chest Pain Stated Complaint: chest pain/med clearance/popd Time Seen by Provider: 03/20/18 21:49 Source: patient and EMS Mode of arrival: EMS Limitations: altered mental status History of Present Illness HPI narrative: 58 years old female complains of chest pain and palpitation. Patient states the chest pain started last night. Patient states the pain is pressure pain substernally with radiation to left arm. Patient complains of rotation also. Patient has history hypertension. Patient denies history of diabetes or hyperlipidemia. Patient is a smoker. Patient drinks alcohol daily. Patient is in police custody. Patient started complaining of palpitation this evening. Patient started telling police that she has chest pain. Patient was transported by EMS to the ED for evaluation. Patient states that she had stress test done a few years ago back and was normal. Patient denies history of CAD. Patient has history of hypothyroidism and tinnitus. MD complaint: Reports chest pain STEMI Alert: No Onset (ago): hour(s) Duration: constant Onset: during rest Pain location: Reports substernal Severity: moderate Severity scale (1-10): 7 Quality: Reports tightness and aching Pain radiation: Reports LUE Relieving factors: nothing Exacerbating factors: nothing Related Data Home Medications Medication Instructions Recorded Confirmed propranolol 10 mg PO DAILY 03/20/18 03/20/18 Previous Rx's Medication Instructions Recorded levothyroxine 25 mcg PO DAILY@0600 #30 tab 10/21/17 Allergies Allergy/AdvReac Type Severity Reaction Status Date / Time No Known Allergies Allergy Unverified 03/20/18 21:53 Review of Systems ROS: all other systems reviewed are negative PMFSH History History Provided By: Patient Medical History Medical History Bilateral tinnitus (Acute) Hypertension (Acute) Mass in chest (Acute) Surgical History Surgical History Hx of breast reduction, elective (Acute) Social History Social History Substance History: No History of Abuse Second Hand Smoke Exposure: No Smoking Status: Current every day smoker Tobacco Type: Cigarettes How Often Do You Have a Drink Containing Alcohol: 4 or more times a week Recent Travel in [facility] within the Last 8 Weeks: No Recent Out of Country Travel within the Last 8 Weeks: No Exam Narrative Exam Narrative: GENERAL: Well-nourished, well-developed patient. SKIN: Focused skin assessment warm/dry. HEAD: Normocephalic. EYES: No scleral icterus. No injection or drainage. NECK: Supple, trachea midline. No JVD or lymphadenopathy. CARDIOVASCULAR: Regular rate and rhythm without murmurs, gallops, or rubs. RESPIRATORY: Breath sounds equal bilaterally. No accessory muscle use. GASTROINTESTINAL: Abdomen soft, non-tender, nondistended. MUSCULOSKELETAL: No cyanosis, or edema. BACK: Nontender without obvious deformity. No CVA tenderness. Neurologic exam: Patient is awake and alert oriented x3. Patient moves her extremities well. No obvious focal neurological deficit. Course Initial Documented Vital Signs Temperature 98.5 F 03/20/18 21:47 Pulse Rate 71 03/20/18 21:47 Respiratory Rate 20 03/20/18 21:47 Blood Pressure 130/78 03/20/18 21:47 Pulse Oximetry 97 03/20/18 21:47 Last Documented Vital Signs Temperature 98.5 F 03/20/18 21:47 Pulse Rate 71 03/20/18 21:55 Respiratory Rate 20 03/20/18 21:47 Blood Pressure 130/78 03/20/18 21:47 Pulse Oximetry 95 03/20/18 21:55 Medical Decision Making MDM Narrative Medical decision making narrative: 58 years old female with chest pain. History hypertension. Patient also complaining of palpitations this evening after being arrested. Medical Screen Exam Complete: Yes Emergency Medical Condition: Yes Differential Diagnosis Differential Diagnosis: Differential diagnosis including musculoskeletal, angina , NM, PE, pneumothorax. Lab Data Lab results reviewed: Yes I reviewed the patient's lab results. Result diagrams: 03/20/18 21:06 03/20/18 21:06 Lab Results 03/20/18 03/20/18 03/20/18 Range/Units 21:06 21:06 21:06 WBC 15.5 H (4.0-11.0) th/mm3 RBC 5.06 (4.00-5.30) mil/mm3 Hgb 16.7 H (11.6-15.3) gm/dL Hct 46.6 H (35.0-46.0) % MCV 92.1 (80.0-100.0) fL MCH 33.0 (27.0-34.0) pg MCHC 35.8 (32.0-36.0) % RDW 13.1 (11.6-17.2) % Plt Count 235 (150-450) th/mm3 MPV 8.0 (7.0-11.0) fL Neut % (Auto) 87.0 H (16.0-70.0) % Lymph % (Auto) 8.7 L (9.0-44.0) % [place] % (Auto) 4.1 (0.0-8.0) % Eos % (Auto) 0.0 (0.0-4.0) % Baso % (Auto) 0.2 (0.0-2.0) % Neut # (Auto) 13.5 H (1.8-7.7) th/mm3 Lymph # (Auto) 1.3 (1.0-4.8) th/mm3 [place] # (Auto) 0.6 (0.0-0.9) th/mm3 Eos # (Auto) 0.0 (0.0-0.4) th/mm3 Baso # (Auto) 0.0 (0.0-0.2) th/mm3 WBC Differential . Differential Comment Auto diff final PT 9.3 L (9.8-11.6) sec INR 0.9 Ratio APTT 28.8 (23.4-31.7) sec Sodium 123 L* (136-145) meq/L Potassium 5.2 H (3.5-5.1) meq/L Chloride 85 L (98-107) meq/L Carbon Dioxide 20.5 L (21.0-32.0) meq/L Anion Gap 18 H (5-15) meq/L BUN 25 H (7-18) mg/dL Creatinine 0.99 (0.50-1.00) mg/dL Estimated GFR 58 L (>89) mL/min Random Glucose 88 (74-106) mg/dL Calcium 8.1 L (8.5-10.1) mg/dL Total Bilirubin 0.7 (0.2-1.0) mg/dL AST 169 H (15-37) U/L ALT 97 H (10-53) U/L Alkaline Phosphatase 97 (45-117) U/L Troponin I 0.05 (0.02-0.05) ng/mL Total Protein 7.2 (6.4-8.2) g/dL Albumin 3.9 (3.4-5.0) g/dL Lipase 362 (73-393) U/L Serum Alcohol 256 H (0-5) mg/dL Imaging Data Radiologist's impression: Chest X-Ray 03/20/18 21:50 CONCLUSION: No acute cardiopulmonary disease. Discharge Plan Discharge Disposition Patient Disposition: ED Admit(ED Internal Use Only) Discharge Details Diagnosis: Chest pain, Acute hyponatremia, Alcohol intoxication Physicians Team ED Provider: Issac Fox Primary Care Provider: Alba Mitchell Rxs /Orders / Referrals /Forms Prescriptions: No Action levothyroxine 25 mcg Tablet 25 mcg PO DAILY@0600 Qty: 30 RF: 0 propranolol 10 mg Tablet 10 mg PO DAILY RF: 0 Discharge Instructions Patient Printed Instructions: Chest Pain (ED) Status ED Status: With Doctor
[2018-03-20] MEDS ORDERED: Sod Chloride 0.9% Inj 1,000 ML IV.CONT SCH ×2 (22:00→22:45)
--- NOTE | 2018-03-20 22:09 | XR ---
EXAM DATE: 03/20/2018 10:04 PM EST AGE/SEX: 58 years / Female INDICATIONS: Bilateral chest pain. CLINICAL DATA: This is the patient's initial encounter. Patient reports that signs and symptoms have been present for 1 day and indicates a pain score of 10/10. MEDICAL/SURGICAL HISTORY: . Hypertension. Mass cardiothoracic cavity. . Breast reduction. Arm s urgery. Tonsillectomy. Hernia repair. . COMPARISON: [facility], CHEST 2V PA&LAT, 10/19/2017. . FINDINGS: The lungs are clear without infiltrate, nodule, or mass. There is no appreciable pleural effusion for technique. Heart and mediastinum are unremarkable. CONCLUSION: No acute cardiopulmonary disease. Electronically signed by: Nargis Mcdonald MD Board Certified Radiologist 03/20/2018 10:08 PM EST
[2018-03-20 22:14] LABS: Baso % (Auto) 0.2 % (0.0-2.0); Hematocrit 46.6 % (35.0-46.0); Hemoglobin 16.7 gm/dL (11.6-15.3); Lymph # (Auto) 1.3 th/mm3 (1.0-4.8); Lymph % (Auto) 8.7 % (9.0-44.0); Mean Corpuscular HGB Conc 35.8 % (32.0-36.0); Mean Corpuscular Volume 92.1 fL (80.0-100.0); Mono # (Auto) 0.6 th/mm3 (0.0-0.9); Mono % (Auto) 4.1 % (0.0-8.0); Neut # (Auto) 13.5 th/mm3 (1.8-7.7); Platelet Count 235 th/mm3 (150-450); Red Blood Count 5.06 mil/mm3 (4.00-5.30); Red Cell Distribution Width 13.1 % (11.6-17.2); White Blood Count 15.5 th/mm3 (4.0-11.0)
[2018-03-20 22:38] LABS: Activated Partial Thrombo Time 28.8 sec (23.4-31.7); INR 0.9 Ratio; Prothrombin Time 9.3 sec (9.8-11.6)
[2018-03-20 22:40] LABS: Alanine Aminotransferase 97 U/L (10-53); Albumin 3.9 g/dL (3.4-5.0); Alkaline Phosphatase 97 U/L (45-117); Anion Gap 18 meq/L (5-15); Aspartate Aminotransferase 169 U/L (15-37); Blood Urea Nitrogen 25 mg/dL (7-18); Calcium 8.1 mg/dL (8.5-10.1); Carbon Dioxide 20.5 meq/L (21.0-32.0); Chloride 85 meq/L (98-107); Glomerular Filtration Rate 58 mL/min (>89); Glucose,Random 88 mg/dL (74-106); Lipase 362 U/L (73-393); Potassium 5.2 meq/L (3.5-5.1); Total Protein 7.2 g/dL (6.4-8.2); Troponin I 0.05 ng/mL (0.02-0.05)
[2018-03-20 22:42] LABS: Alcohol 256 mg/dL (0-5); Sodium 123 meq/L (136-145)
[2018-03-20] MEDS ORDERED: Sod Chloride 0.9% Inj 1,000 ML IV.SIG SCH (22:45)
[2018-03-20] MEDS ORDERED: Bisacodyl 10 MG Supp RECTAL PRN (23:04)
[2018-03-20] MEDS ORDERED: Acetaminophen 325 MG Tablet PO PRN (23:04)
[2018-03-20] MEDS ORDERED: Haloperidol Inj 5 MG/ML Ampul IV.PUSH PRN (23:05)
--- NOTE | 2018-03-20 23:06 | P.HPIM ---
History of Present Illness Primary Care Physician: Alba Mitchell History of Present Illness: This is a 58-year-old female with a PMH of HTN, Tobacco Abuse and Alcohol Abuse was brought to the ER under Police custody for complaints of chest pain. Pt was apparently arrested for violating probation, told officers she was having severe chest pain and was brought to the ER for evaluation. Reports substernal chest pain, 10/10, non-radiating, worse w/ breathing. On arrival, BP 130/78, HR 71, O2 sat 97% on RA, Afebrile. WBC 15.5. INR 0.9. Na 123. K+ 5.2. CPK 490. Troponin 0 0.05. Alcohol 256. Pending UA and UDS. CXR with no acute findings. - Diagnosis (1) Chest pain (2) Leukocytosis (3) Tobacco abuse (4) Alcohol intoxication Review of Systems PAST FAMILY HISTORY: Reviewed. No h/o DM or CAD All other systems reviewed negative except as stated in HPI [facility] - History History Provided By: Patient - Medical History Medical History: Medical History (Last Reviewed 03/20/18 @ 21:54 by Issac Fox MD) Bilateral tinnitus Hypertension Mass in chest - Surgical History Surgical History: Surgical History (Last Reviewed 03/20/18 @ 21:54 by Issac Fox MD) Hx of breast reduction, elective - Tobacco History Second Hand Smoke Exposure: No Tobacco Use In Past 30 Days: Yes Smoking Status: Current every day smoker Tobacco Type: Cigarettes - Alcohol History How Often Do You Have a Drink Containing Alcohol: 4 or more times a week - Substance Use History Substance History: No History of Abuse - Travel History Recent Travel in the [place] Within the Last 8 Weeks: No Recent Travel Out of the Country Within the Last 8 Weeks: No - Immunization History Tetanus Immunization: Unsure Medications and Allergies Active Medications: Active Medications Sodium Chloride (Ns Inj) 1,000 mls @ 125 mls/hr IV.CONT .Q8H SANIYA Last Infusion: 03/20/18 22:58 Dose: Infused Sodium Chloride (Ns Inj) 1,000 mls @ 125 mls/hr IV.CONT .Q8H SANIYA Last Admin: 03/20/18 23:06 Dose: 125 mls/hr Sodium Chloride (Ns Inj) 1,000 mls @ 1,000 mls/hr IV.SIG BOLUS SANIYA Stop: 03/20/18 23:44 Last Admin: 03/20/18 23:06 Dose: 1,000 mls/hr Allergies Allergy/AdvReac Type Severity Reaction Status Date / Time No Known Allergies Allergy Unverified 03/20/18 21:53 Home Medications Medication Instructions Recorded Confirmed Type propranolol 10 mg PO DAILY 03/20/18 03/20/18 History Exam Vital signs: Vital Signs 03/20/18 21:47 03/20/18 21:55 Temperature 98.5 F Pulse Rate 71 71 Respiratory Rate 20 Blood Pressure 130/78 Pulse Oximetry 97 95 Intake & Output 03/20/18 03/20/18 03/21/18 06:59 18:59 06:59 Intake Total 1101 / 1101 Balance 1101 / 1101 Weight 68.039 kg Intake: IV 1101 / 1101 NS Inj 1,000 ML @ 125 mls/hr IV 1000 / 1000 .CONT .Q8H SANIYA Rx#:[id number] Thiamine Inj 100 MG In NS Inj 101 / 101 100 ML @ 100 mls/hr IV.SIG ONCE ONE Rx#:[id number] Narrative: PE: GENERAL: Middle-aged white female in no acute distress. Officer at bedside. SKIN: Focused skin assessment warm and dry. HEENT: PERRLA, EOMI. No scleral icterus or conjunctival pallor. No lid lag or facial droop. CARDIOVASCULAR: Regular rate and rhythm. No obvious murmurs to auscultation. No chest tenderness to palpation. RESPIRATORY: No obvious rhonchi or wheezing. Clear to auscultation. Breath sounds equal bilaterally. GASTROINTESTINAL: Abdomen soft, non-tender, nondistended. BS normal. MUSCULOSKELETAL: Extremities without clubbing, cyanosis, or edema. No obvious deformities. NEUROLOGICAL: Awake, alert and oriented x4. No focal neurologic deficits. Moving both upper and lower extremities spontaneously. PSYCHIATRIC: Appropriate mood and affect. Insight and judgment normal. Results - Labs CBC & Chem 7: 03/20/18 21:06 03/20/18 21:06 Labs: Short CBC 03/20/18 Range/Units 21:06 WBC 15.5 H (4.0-11.0) th/mm3 Hgb 16.7 H (11.6-15.3) gm/dL Hct 46.6 H (35.0-46.0) % Plt Count 235 (150-450) th/mm3 BMP 03/20/18 21:06 Sodium 123 L* Potassium 5.2 H Chloride 85 L Carbon Dioxide 20.5 L BUN 25 H Creatinine 0.99 Calcium 8.1 L Cardiac Enzymes 03/20/18 Range/Units 21:06 Troponin I 0.05 (0.02-0.05) ng/mL Liver Function 03/20/18 Range/Units 21:06 Total Bilirubin 0.7 (0.2-1.0) mg/dL AST 169 H (15-37) U/L ALT 97 H (10-53) U/L Alkaline Phosphatase 97 (45-117) U/L Albumin 3.9 (3.4-5.0) g/dL - Imaging Impressions Chest X-Ray 03/20/18 21:50 CONCLUSION: No acute cardiopulmonary disease. Caprini VTE Risk Assessment Caprini VTE Risk Assessment: No/Low Risk (score <= 1) Caprini Risk Assessment Model: Point Value = 1 Point Value = 2 Point Value = 3 Point Value = 5 Age 41-60 Minor surgery BMI > 25 kg/m2 Swollen legs Varicose veins or History of unexplained or recurrent spontaneous Oral contraceptives or hormone replacement Sepsis (< 1 month) Serious lung disease, including pneumonia (< 1 month) Abnormal pulmonary function Acute myocardial infarction Congestive heart failure (< 1 month) History of inflammatory bowel disease Medical patient at bed rest Age 61-74 Arthroscopic surgery Major open surgery (> 45 min) Laparoscopic surgery (> 45 min) Malignancy Confined to bed (> 72 hours) Immobilizing plaster cast Central venous access Age >= 75 History of VTE Family history of VTE Factor V Leiden Prothrombin [id number] Lupus anticoagulant Anticardiolipin antibodies Elevated serum homocysteine Heparin-induced thrombocytopenia Other congenital or acquired thrombophilia Stroke (< 1 month) Elective arthroplasty Hip, pelvis, or leg fracture Acute spinal cord injury (< 1 month) Prophylaxis Regimen: Total Risk Factor Score Risk Level Prophylaxis Regimen 0-1 Low Early ambulation 2 Moderate Order ONE of the following: *Sequential Compression Device (SCD) *Heparin 5000 units SQ BID 3-4 Higher Order ONE of the following medications: *Heparin 5000 units SQ TID *Enoxaparin/Lovenox 40 mg SQ daily (WT < 150 kg, CrCl > 30 mL/min) *Enoxaparin/Lovenox 30 mg SQ daily (WT < 150 kg, CrCl > 10-29 mL/min) *Enoxaparin/Lovenox 30 mg SQ BID (WT < 150 kg, CrCl > 30 mL/min) AND/OR *Sequential Compression Device (SCD) 5 or more Highest Order ONE of the following medications: *Heparin 5000 units SQ TID (Preferred with Epidurals) *Enoxaparin/Lovenox 40 mg SQ daily (WT < 150 kg, CrCl > 30 mL/min) *Enoxaparin/Lovenox 30 mg SQ daily (WT < 150 kg, CrCl > 10-29 mL/min) *Enoxaparin/Lovenox 30 mg SQ BID (WT < 150 kg, CrCl > 30 mL/min) AND *Sequential Compression Device (SCD) Assessment and Plan - Assessment (1) Chest pain Code(s): R07.9 - Chest pain, unspecified Status: Acute (2) Leukocytosis Code(s): D72.829 - Elevated white blood cell count, unspecified Status: Acute (3) Tobacco abuse Code(s): Z72.0 - Tobacco use Status: Acute (4) Alcohol intoxication Code(s): F10.929 - Alcohol use, unspecified with intoxication, unspecified Status: Acute - Plan A/P: 1. Chest Pain: acute onset of chest pain after being taken into Police custody , notes pain improved at this time. Initial trop 0.05, EKG w/ no acute ischemia. Admit for Observation, telemetry, check serial cardiac enzymes, ASA/ Statin, hold B-travis until results of UDS available. 2. Alcohol Intoxication: Alcohol 256, high risk for withdrawal, CIWA, Seizure Precautions, MVT/Thiamine/Folate replacement. 3. Leukocytosis: WBC 15, no obvious infection, afebrile, CXR w/ no acute findings, check U/a, repeat labs in am. 4. DVT Prophylaxis: SCD/Teds 5. Social work for d/c planning as needed. 6. Case discussed w/ ER physician at length, labs/records/imaging reviewed by me. (1) Chest pain Qualifiers: Chest pain type: unspecified Qualified Code(s): R07.9 - Chest pain, unspecified (4) Alcohol intoxication Qualifiers: Complication of substance-induced condition: uncomplicated Qualified Code(s) : F10.920 - Alcohol use, unspecified with intoxication, uncomplicated
[2018-03-20] MEDS: Sod Chloride 0.9% Inj 1,000 ML IV.CONT SCH (23:27)
[2018-03-20 23:43] LABS: Magnesium 2.3 mg/dL (1.5-2.5)
[2018-03-21 00:11] LABS: CKMB Percent 0.7 % (0.0-4.0); Creatine Kinase MB 3.6 ng/mL (0.5-3.6)
[2018-03-21] MEDS ORDERED: Acetaminophen 325 MG Tablet PO PRN (05:07)
[2018-03-21] MEDS: Senna/Docusate Sodium 8.6/50 MG Tablet PO SCH ×3 (07:46→21:45)
[2018-03-21] MEDS: Folic Acid 1 MG Tablet PO SCH ×2 (07:46→09:08)
[2018-03-21] MEDS: Multivitamin/Minerals Therapeutic Tablet PO SCH ×2 (07:46→09:09)
--- NOTE | 2018-03-21 08:25 | P.PNIM ---
Subjective Interval history: pt seen and examined at the bedside no auditory or visual hallucinations feels queezy in stomach but no nausea or vomiting no diaphoresis + palpitations no dizziness + tinnitus ( chronic) no change in vision ( blurry) no change in hearing Patient has not walked as she is under bed arrest with cuff currently so unsure of her balance sensation seems at baseline as per patient last drink was 2 days ago ( 03/19) as per patient. Physical Exam Vital signs: Last Vital Signs Temp 98.6 F 03/21/18 07:27 Pulse 77 03/21/18 07:27 Resp 20 03/21/18 07:27 BP 171/90 H 03/21/18 07:27 Pulse Ox 96 03/21/18 07:27 Intake & Output 03/19/18 03/20/18 03/21/18 03/22/18 06:59 06:59 06:59 06:59 Intake Total 2625 / 2625 Balance 2625 / 2625 Weight 68 kg gen: nad heent: eomi, perrla cvs: s1/s2. no tachycardia resp: CTA bilaterally gi: soft, non tender, non distended, no guarding or rebound ext: no edema or calf tenderness neuro: no facial droop, no slurred speech, sensation UE/LE bilaterally intact. Results Labs CBC & Chem 7: 03/21/18 09:45 03/21/18 09:45 Imaging Imaging: Impressions Chest X-Ray 03/20/18 21:50 CONCLUSION: No acute cardiopulmonary disease. Assessment and Plan (1) Chest pain: Code(s): R07.9 - Chest pain, unspecified Status: Acute (2) Leukocytosis: Code(s): D72.829 - Elevated white blood cell count, unspecified Status: Acute (3) Tobacco abuse: Code(s): Z72.0 - Tobacco use Status: Acute (4) Alcohol intoxication: Code(s): F10.929 - Alcohol use, unspecified with intoxication, unspecified Status: Acute Plan Patient is a 58-year-old female with past medical history of hypothyroidism who presents to emergency department for chest pain evaluation found to have evidence of hyponatremia, hyperkalemia and evidence of alcoholic withdrawal after consuming liquor one day prior to admission. Psychiatry: History of alcohol abuse Patient demonstrates symptomatology of alcohol withdrawal. At this time we will continue C1 protocol symptom based management Folic acid 1 mg daily Patient encouraged to remain abstinent from alcohol use. On disposition patient may benefit from outpatient treatment center when released from police custody Nephrology: Hyponatremia Improved with normal saline hydration. No symptoms of hyponatremia at this time continue to monitor Endocrinology: Hypothyroidism Continue 25 mcg daily Cardiology: Chest pain Suspect the patient's symptoms may be secondary to withdrawal from alcohol. Troponin normalized. Appears to be type II demand ischemia and not secondary to acute plaque rupture at this time we will not heparinize patient. Continue to monitor EKG as needed chest pain Telemetry monitoring CODE STATUS: Full code DVT prophylaxis Disposition: Medical search. Patient continues to have complaints concerning for active withdrawal from alcohol. [place] protocol symptom based management at this time. Progress Note: Quality VTE Deep Vein Thrombosis/Pulmonary Embolism Present on Admission: No _ (1) Alcohol intoxication Qualifiers: Complication of substance-induced condition: uncomplicated Qualified Code(s) : F10.920 - Alcohol use, unspecified with intoxication, uncomplicated (2) Leukocytosis Qualifiers: Leukocytosis type: (3) Chest pain Qualifiers: Chest pain type: unspecified Ischemic chest pain type: Qualified Code(s): R07.9 - Chest pain, unspecified
[2018-03-21 09:30] LABS: Amphetamine Screen,Urine Neg (Neg); Barbiturate Screen,Urine Neg (Neg); Cannabinoid Screen,Urine Neg (Neg); Cocaine Screen,Urine Neg (Neg)
[2018-03-21 09:31] LABS: Opiate Screen,Urine Neg (Neg)
[2018-03-21] MEDS: Sod Chloride 0.9% Inj 1,000 ML IV.CONT SCH ×2 (09:47→20:00)
[2018-03-21 10:28] LABS: Baso % (Auto) 0.3 % (0.0-2.0); Eos % (Auto) 0.1 % (0.0-4.0); Hematocrit 40.1 % (35.0-46.0); Hemoglobin 14.2 gm/dL (11.6-15.3); Lymph % (Auto) 9.5 % (9.0-44.0); Mean Corpuscular HGB Conc 35.3 % (32.0-36.0); Mean Corpuscular Hemoglobin 33.5 pg (27.0-34.0); Mean Corpuscular Volume 94.8 fL (80.0-100.0); Mono # (Auto) 0.5 th/mm3 (0.0-0.9); Mono % (Auto) 4.5 % (0.0-8.0); Neut # (Auto) 9.2 th/mm3 (1.8-7.7); Neut % (Auto) 85.6 % (16.0-70.0); Platelet Count 163 th/mm3 (150-450); Red Blood Count 4.23 mil/mm3 (4.00-5.30); Red Cell Distribution Width 13.2 % (11.6-17.2); White Blood Count 10.8 th/mm3 (4.0-11.0)
[2018-03-21 10:32] LABS: Albumin 3.1 g/dL (3.4-5.0); Calcium 7.4 mg/dL (8.5-10.1); Potassium 4.2 meq/L (3.5-5.1)
[2018-03-21 10:45] LABS: Total Protein 5.6 g/dL (6.4-8.2); Troponin I 0.05 ng/mL (0.02-0.05)
--- NOTE | 2018-03-21 12:18 | ECG ---
Date Performed: 03/20/2018 Time Performed: 21:48:22 PTAGE: 58 years EKG: Sinus rhythm PROLONGED QT INTERVAL ABNORMAL ECG Since the PREVIOUS TRACING , no significant change noted PREVIOUS TRACIN10/19/17 DOCTOR: Nick Tinsley Interpretating Date/Time 03/21/2018 12:16:52
[2018-03-21] MEDS: LORazepam 1 MG Tablet PO PRN (21:47)
[2018-03-22] MEDS: Sod Chloride 0.9% Inj 1,000 ML IV.CONT SCH (04:20)
[2018-03-22 07:57] VITALS: O2SAT 98
[2018-03-22] MEDS: Multivitamin/Minerals Therapeutic Tablet PO SCH (09:09)
[2018-03-22] MEDS: Senna/Docusate Sodium 8.6/50 MG Tablet PO SCH (09:09)
[2018-03-22] MEDS: Folic Acid 1 MG Tablet PO SCH (09:09)
[2018-03-22 09:20] LABS: Hematocrit 38.6 % (35.0-46.0); Hemoglobin 13.4 gm/dL (11.6-15.3); Mean Corpuscular HGB Conc 34.7 % (32.0-36.0); Mean Corpuscular Hemoglobin 33.1 pg (27.0-34.0); Mean Corpuscular Volume 95.6 fL (80.0-100.0); Mean Platelet Volume 8.4 fL (7.0-11.0); Platelet Count 125 th/mm3 (150-450); Red Blood Count 4.03 mil/mm3 (4.00-5.30); Red Cell Distribution Width 13.4 % (11.6-17.2); White Blood Count 7.3 th/mm3 (4.0-11.0)
[2018-03-22] MEDS: LORazepam 1 MG Tablet PO PRN (09:36)
[2018-03-22 09:41] LABS: Albumin 2.7 g/dL (3.4-5.0); Calcium 7.6 mg/dL (8.5-10.1); Carbon Dioxide 24.1 meq/L (21.0-32.0); Potassium 3.7 meq/L (3.5-5.1)
[2018-03-22 09:44] LABS: Total Protein 5.3 g/dL (6.4-8.2)
[2018-03-22 11:58] VITALS: BP 171/97; PULSE 77; RESP 18; TEMP 99.2
[2018-03-22] MEDS ORDERED: chlordiazePOXIDE 25 MG Capsule PO ONE (13:00)
--- NOTE | 2018-03-22 14:43 | P.DS ---
DS: Providers Date of admission: 03/21/18 11:06 Primary care physician: Alba Mitchell Consults: 03/20/18 23:50 HUB Only Consult Order Routine Consulting Provider: Lb Asher Brief History from admission: This is a 58-year-old female with a PMH of HTN, Tobacco Abuse and Alcohol Abuse was brought to the ER under Police custody for complaints of chest pain. Pt was apparently arrested for violating probation, told officers she was having severe chest pain and was brought to the ER for evaluation. Reports substernal chest pain, 01/12, non-radiating, worse w/ breathing. On arrival, BP 130/78, HR 71, O2 sat 97% on RA, Afebrile. WBC 15.5. INR 0.9. Na 123. K+ 5.2. CPK 490. Troponin 0 0.05. Alcohol 256. Pending UA and UDS. CXR with no acute findings. DS: Diagnosis Discharge Diagnosis (1) Chest pain: Status: Acute (2) Leukocytosis: Status: Acute (3) Tobacco abuse: Status: Acute (4) Alcohol intoxication: Status: Acute DS: Summary Patient was admitted and continued on IV fluids for hydration and alcohol withdrawal protocol. Her sodium levels improved and she was tolerating a diet, she was ambulating and a bit anxious but otherwise clinically stable for discharge, without any evidence of chest pain or acute coronary syndrome, WBC count normalized without evidence of infection, patient was otherwise clinically stable for discharge to nursing home custody outpatient follow-up encouraged with alcohol cessation and tobacco cessation. Discharge diagnosis: Acute alcohol intoxication Alcohol withdrawal Nicotine addiction/tobacco abuse Leukocytosis stress demargination Atypical chest pain likely anxiety induced Hypothyroidism Hyponatremia with dehydration Time Spent with Patient Total time spent providing and/or coordinating discharge services: Greater than 30 minutes Status at Discharge Functional status at discharge: independent ambulation Quality: VTE Deep Vein Thrombosis/Pulmonary Embolism Present on Admission: No Exam Narrative Exam Narrative: Well-developed well-nourished thin 58-year-old white female Awake alert anxious no acute distress Heart S1-S2 regular Lungs clear bilateral no wheeze no rhonchi Abdomen soft nondistended positive bowel sounds Extremities no clubbing cyanosis no significant edema Results Labs on day of discharge: Labs from last 24 hours 03/22/18 03/22/18 03/22/18 09:05 08:40 08:40 WBC 7.3 RBC 4.03 Hgb 13.4 Hct 38.6 MCV 95.6 MCH 33.1 MCHC 34.7 RDW 13.4 Plt Count 125 L MPV 8.4 Sodium 136 Potassium 3.7 Chloride 104 Carbon Dioxide 24.1 Anion Gap 8 BUN 16 Creatinine 0.69 Estimated GFR 88 L POC Glucose 92 Random Glucose 86 Calcium 7.6 L Magnesium 2.0 Total Bilirubin 0.9 Direct Bilirubin 0.3 H Indirect Bilirubin 0.6 AST 87 H ALT 65 H Alkaline Phosphatase 75 Total Protein 5.3 L Albumin 2.7 L 03/21/18 03/21/18 22:04 17:20 WBC RBC Hgb Hct MCV MCH MCHC RDW Plt Count MPV Sodium Potassium Chloride Carbon Dioxide Anion Gap BUN Creatinine Estimated GFR POC Glucose 99 91 Random Glucose Calcium Magnesium Total Bilirubin Direct Bilirubin Indirect Bilirubin AST ALT Alkaline Phosphatase Total Protein Albumin Impressions ITS Impressions Chest X-Ray 03/20/18 21:50 CONCLUSION: No acute cardiopulmonary disease. Discharge Plan Discharge Disposition Patient Disposition: [address] [employer] Discharge Condition Condition: Stable Discharge Order Discharge Orders: Discharge Order (Routine); Ordered 03/22/18 Ordered By: Elaina Armstrong Physicians Team Primary Care Provider: Alba Mitchell Attending Provider: Elaina Armstrong Other Providers: Lb Asher Rxs /Orders / Referrals /Forms Prescriptions: New pravastatin 40 mg Tablet 40 mg PO DAILY Qty: 30 RF: 0 [id number]-mins [Thera M Plus (ferrous fumarat)] 9 mg iron-400 mcg Tablet 1 tab PO DAILY Qty: 30 RF: 0 Continue levothyroxine 25 mcg Tablet 25 mcg PO DAILY@0600 Qty: 30 RF: 0 propranolol 10 mg Tablet 10 mg PO DAILY RF: 0 isosorbide mononitrate 30 mg Tablet Extended Release 24 Hr 30 mg PO DAILY RF: 0 Referrals: Alba Mitchell MD [Primary Care Provider] - See Instructions ( Please call the physician's office to book the appointment to be seen within [2-3 montalvo].) Discharge Instructions Patient Printed Instructions: Multivitamins with Minerals (By mouth), Pravastatin (By mouth), Chest Pain (ED), Dehydration (DC), Hyponatremia (DC) Status ED Status: Left Department Discharge Information Discharge Date/Time: 03/22/18 14:37
== END 2018-03-22 14:37 ==
LOC: NEPD 21:38 → NEDA 21:38 → NEPFCDU 23:54
PROVIDERS: ADMIT Internal Medicine; ATTEND Internal Medicine
DX: Z65.3 Problems related to other legal circumstances; E03.9 Hypothyroidism, unspecified; F10.239 Alcohol dependence with withdrawal, unspecified; H93.13 Tinnitus, bilateral; D72.829 Elevated white blood cell count, unspecified; F41.9 Anxiety disorder, unspecified; R00.2 Palpitations; F10.229 Alcohol dependence with intoxication, unspecified; Y90.8 Blood alcohol level of 240 mg/100 ml or more; I24.8 Other forms of acute ischemic heart disease; I10 Essential (primary) hypertension; F17.210 Nicotine dependence, cigarettes, uncomplicated; E87.1 Hypo-osmolality and hyponatremia; E87.5 Hyperkalemia
CPT/HCPCS: 71010; 71045; 80048; 80053; 80076; 80307; 82550; 82552; 82948; 82962; 83690; 83735; 83930; 84443; 84484; 85025; 85027; 85610; 85730; 93005; J2060; J2405; J3411; J7030

== ENCOUNTER 2018-03-25 23:30 | Observation (INO) ==
[2018-03-25] MEDS ORDERED: Pantoprazole Inj 40 MG Vial IV.PUSH ONE (23:53)
[2018-03-26] MEDS: Sod Chloride 0.9% Inj 1,000 ML IV.CONT SCH ×2 (00:18→09:14)
--- NOTE | 2018-03-26 00:34 | XR ---
EXAM DATE: 03/26/2018 12:25 AM EST AGE/SEX: 58 years / Female INDICATIONS: Short of breath. CLINICAL DATA: This is the patient's initial encounter. Patient reports that signs and symptoms have been present for 1 day and indicates a pain score of 5/10. MEDICAL/SURGICAL HISTORY: None. None. COMPARISON: [facility] [place], CHEST 1V SINGLE AP, 03/20/2018. . FINDINGS: A single AP view of the chest demonstrates the lungs to be symmetrically aerated without evidence of mass, infiltrate or effusion. The cardiomediastinal contours are unremarkable. Osseous structures a re intact. CONCLUSION: The lungs are clear. Electronically signed by: Ovidio Mohamud MD Board Certified Radiologist 03/26/2018 12:33 AM EST
[2018-03-26 00:37] LABS: Magnesium 1.5 mg/dL (1.5-2.5)
[2018-03-26] MEDS ORDERED: Ketorolac Inj 30 MG/ML (IVP) Vial IV.PUSH ONE (01:46)
[2018-03-26 01:47] LABS: Alanine Aminotransferase 46 U/L (10-53); Albumin 3.5 g/dL (3.4-5.0); Alkaline Phosphatase 74 U/L (45-117); Anion Gap 13 meq/L (5-15); Aspartate Aminotransferase 39 U/L (15-37); Blood Urea Nitrogen 7 mg/dL (7-18); Calcium 8.3 mg/dL (8.5-10.1); Carbon Dioxide 26.2 meq/L (21.0-32.0); Chloride 89 meq/L (98-107); Glomerular Filtration Rate 82 mL/min (>89); Glucose,Random 120 mg/dL (74-106); Sodium 128 meq/L (136-145); Total Protein 6.4 g/dL (6.4-8.2); Troponin I 0.04 ng/mL (0.02-0.05)
[2018-03-26 01:51] LABS: Potassium 2.7 meq/L (3.5-5.1)
[2018-03-26] MEDS ORDERED: Potassium Chlor 10 mEq Premix 10 MEQ/100 ML PIGGYBACK IV.SIG ONE (01:52)
[2018-03-26] MEDS ORDERED: Mag Sulf 1 gm/100 ml Premix 100 ML IV.SIG ONE (01:54)
[2018-03-26] MEDS ORDERED: Sodium Chlor 0.9% Inj 500 ML IV.SIG SCH (02:00)
[2018-03-26 02:18] LABS: Baso # (Auto) 0.1 th/mm3 (0.0-0.2); Baso % (Auto) 1.2 % (0.0-2.0); Eos # (Auto) 0.1 th/mm3 (0.0-0.4); Eos % (Auto) 0.9 % (0.0-4.0); Hematocrit 42.2 % (35.0-46.0); Lymph # (Auto) 1.5 th/mm3 (1.0-4.8); Lymph % (Auto) 23.4 % (9.0-44.0); Mean Corpuscular HGB Conc 33.1 % (32.0-36.0); Mean Corpuscular Hemoglobin 31.6 pg (27.0-34.0); Mean Corpuscular Volume 95.7 fL (80.0-100.0); Mean Platelet Volume 8.5 fL (7.0-11.0); Neut # (Auto) 3.8 th/mm3 (1.8-7.7); Neut % (Auto) 58.5 % (16.0-70.0); Platelet Count 224 th/mm3 (150-450); Red Blood Count 4.41 mil/mm3 (4.00-5.30); Red Cell Distribution Width 12.8 % (11.6-17.2); White Blood Count 6.5 th/mm3 (4.0-11.0)
[2018-03-26 03:23] LABS: Amphetamine Screen,Urine Neg (Neg); Barbiturate Screen,Urine Neg (Neg); Bilirubin,Urine Negative (Negative); Clarity,Urine Clear (Clear); Color,Urine Yellow (Yellw/Straw); Glucose,Urine (UA) Negative (Negative); Leukocyte Esterase,Urine Trace (Negative); Nitrite,Urine Positive (Negative); Specific Gravity,Urine Less/Equal 1.005 (1.002-1.035); Urobilinogen,Urine 0.2 mg/dL (Less than 2)
[2018-03-26 03:24] LABS: Cannabinoid Screen,Urine Neg (Neg); Cocaine Screen,Urine Neg (Neg)
[2018-03-26 03:30] LABS: Opiate Screen,Urine Neg (Neg)
[2018-03-26 04:02] LABS: Bacteria,Urine Many /hpf; Squamous Epithelial Cell,Urine 0-5 /hpf (0-5); WBC,Urine 0-5 /hpf (0-5)
[2018-03-26] MEDS ORDERED: LORazepam 1 MG Tablet PO PRN (05:00)
[2018-03-26] MEDS ORDERED: Bisacodyl 10 MG Supp RECTAL PRN (05:00)
[2018-03-26] MEDS ORDERED: Acetaminophen 325 MG Tablet PO PRN (05:00)
[2018-03-26] MEDS ORDERED: Haloperidol Inj 5 MG/ML Ampul IV.PUSH PRN (05:00)
--- NOTE | 2018-03-26 05:21 | ED ---
HPI General Chief Complaint: Chest Pain Stated Complaint: EVAC/Chest Pain Time Seen by Provider: 03/25/18 23:53 Source: patient Mode of arrival: ambulatory Limitations: no limitations History of Present Illness MD complaint: Reports chest pain STEMI Alert: No Onset (ago): hour(s) Duration: constant Onset: during rest and during exertion Pain location: Reports substernal and epigastric Severity: severe Quality: Reports tightness, aching and heaviness; Denies sharp, dull, ripping and similar to prior [place] Pain radiation: Reports none Relieving factors: nothing Exacerbating factors: nothing Context: Reports recent illness and other (recent incarceration; h/o alcohol abuse); Denies recent surgery, recent immobilization, recent travel, trauma/ injury, new medications and history of DVT/PE Associated symptoms: Reports nausea; Denies vomiting, diaphoresis, dyspnea, sense of impending doom, syncope, palpitations, fever, cough and leg swelling Treatments prior to arrival chest pain: Reports none and other Related Data On Oral Contraceptives: No Home Medications Medication Instructions Recorded Confirmed propranolol 10 mg PO DAILY 03/20/18 03/25/18 isosorbide mononitrate 30 mg PO DAILY 03/21/18 03/25/18 trazodone 50 mg PO DAILY 03/25/18 03/25/18 Previous Rx's Medication Instructions Recorded levothyroxine 25 mcg PO DAILY@0600 #30 tab 10/21/17 zzwqoequ-ebgg-LJ-calcium-mins 1 tab PO DAILY #30 tab 03/22/18 [Thera M Plus (ferrous fumarat)] pravastatin 40 mg PO DAILY #30 tab 03/22/18 Allergies Allergy/AdvReac Type Severity Reaction Status Date / Time No Known Allergies Allergy Unverified 03/20/18 21:53 Review of Systems ROS: all other systems reviewed are negative [facility] Medical History Medical History Bilateral tinnitus (Acute) Hypertension (Acute) Mass in chest (Acute) Surgical History Surgical History Hx of breast reduction, elective (Acute) Social History Social History Substance History: No History of Abuse Second Hand Smoke Exposure: Yes Smoking Status: Current every day smoker Tobacco Type: Cigarettes How Often Do You Have a Drink Containing Alcohol: 4 or more times a week Recent Travel in [place] within the Last 8 Weeks: No Recent Out of Country Travel within the Last 8 Weeks: No Immunization History Tetanus Immunization: Unsure Exam Narrative Exam Narrative: GENERAL: Well-nourished, well-developed patient. SKIN: Focused skin assessment warm/dry. HEAD: Normocephalic. EYES: No scleral icterus. No injection or drainage. NECK: Supple, trachea midline. No JVD or lymphadenopathy. CARDIOVASCULAR: Regular rate and rhythm without murmurs, gallops, or rubs. Radial and dorsalis pulses 2+ to palpation bilaterally. RESPIRATORY: Breath sounds equal bilaterally. No accessory muscle use. GASTROINTESTINAL: Abdomen soft, non-tender, nondistended. MUSCULOSKELETAL: No cyanosis, or edema. BACK: Nontender without obvious deformity. No CVA tenderness. Course Initial Documented Vital Signs Temperature 98.3 F 03/25/18 23:51 Pulse Rate 78 03/25/18 23:51 Respiratory Rate 18 03/25/18 23:51 Blood Pressure 169/98 H 03/25/18 23:51 Pulse Oximetry 99 03/25/18 23:51 Last Documented Vital Signs Temperature 98.3 F 03/25/18 23:51 Pulse Rate 63 03/26/18 05:19 Respiratory Rate 18 03/26/18 05:19 Blood Pressure 99/70 L 03/26/18 05:19 Pulse Oximetry 98 03/26/18 05:19 Medical Decision Making MDM Narrative Medical Screen Exam Complete: Yes Emergency Medical Condition: Yes Differential Diagnosis Differential Diagnosis: Chest pain, atypical chest pain, pleurisy, costochondritis, ACS, OH, PE, pneumonia, pneumothorax, gastritis, pancreatitis, electrolyte disturbance, arrhythmia, UTI, sepsis Medical Records Medical records reviewed: Yes I reviewed the patient's medical records. Lab Data Lab results reviewed: Yes I reviewed the patient's lab results. Result diagrams: 03/26/18 00:00 03/26/18 00:00 Lab Results 03/25/18 03/25/18 03/26/18 Range/Units 23:56 23:56 00:00 CBC w Diff Auto diff final WBC 6.5 (4.0-11.0) th/mm3 RBC 4.41 (4.00-5.30) mil/mm3 Hgb 14.0 (11.6-15.3) gm/dL Hct 42.2 (35.0-46.0) % MCV 95.7 (80.0-100.0) fL MCH 31.6 (27.0-34.0) pg MCHC 33.1 (32.0-36.0) % RDW 12.8 (11.6-17.2) % Plt Count 224 D (150-450) th/mm3 MPV 8.5 (7.0-11.0) fL Neut % (Auto) 58.5 (16.0-70.0) % Lymph % (Auto) 23.4 (9.0-44.0) % [place] % (Auto) 16.0 H (0.0-8.0) % Eos % (Auto) 0.9 (0.0-4.0) % Baso % (Auto) 1.2 (0.0-2.0) % Neut # (Auto) 3.8 (1.8-7.7) th/mm3 Lymph # (Auto) 1.5 (1.0-4.8) th/mm3 [place] # (Auto) 1.0 H (0.0-0.9) th/mm3 Eos # (Auto) 0.1 (0.0-0.4) th/mm3 Baso # (Auto) 0.1 (0.0-0.2) th/mm3 WBC Differential . Differential Comment . Sodium (136-145) meq/L Potassium (3.5-5.1) meq/L Chloride (98-107) meq/L Carbon Dioxide (21.0-32.0) meq/L Anion Gap (5-15) meq/L BUN (7-18) mg/dL Creatinine (0.50-1.00) mg/dL Estimated GFR (>89) mL/min Random Glucose (74-106) mg/dL Calcium (8.5-10.1) mg/dL Magnesium 1.5 (1.5-2.5) mg/dL Total Bilirubin (0.2-1.0) mg/dL AST (15-37) U/L ALT (10-53) U/L Alkaline Phosphatase (45-117) U/L Troponin I (0.02-0.05) ng/mL Total Protein (6.4-8.2) g/dL Albumin (3.4-5.0) g/dL Lipase 162 (73-393) U/L Urine Color (Yellw/Straw) Urine Clarity (Clear) Urine pH (5.0-8.5) Ur Specific [place] (1.002-1.035) Urine Protein (Neg-Trace) mg/dL Urine Glucose (UA) (Negative) mg/dL Urine Ketones (Negative) mg/dL Urine Occult Blood (Negative) Urine Nitrate (Negative) Urine Bilirubin (Negative) Urine Urobilinogen (Less than 2) mg/dL Ur Leukocyte Esterase (Negative) Urine WBC (0-5) /hpf Ur Squamous Epith Cells (0-5) /hpf Urine Bacteria (None) /hpf Micro UA Comment Ur Microscopic Review Urine Culture Comments Urine Opiates Screen (Neg) Ur Barbiturates Screen (Neg) Ur Amphetamines Screen (Neg) U Benzodiazepines Scrn (Neg) Urine Cocaine Screen (Neg) U Cannabinoids Screen (Neg) Serum Alcohol Less than 3 (0-5) mg/dL 03/26/18 03/26/18 03/26/18 Range/Units 00:00 03:10 03:10 CBC w Diff WBC (4.0-11.0) th/mm3 RBC (4.00-5.30) mil/mm3 Hgb (11.6-15.3) gm/dL Hct (35.0-46.0) % MCV (80.0-100.0) fL MCH (27.0-34.0) pg MCHC (32.0-36.0) % RDW (11.6-17.2) % Plt Count (150-450) th/mm3 MPV (7.0-11.0) fL Neut % (Auto) (16.0-70.0) % Lymph % (Auto) (9.0-44.0) % [place] % (Auto) (0.0-8.0) % Eos % (Auto) (0.0-4.0) % Baso % (Auto) (0.0-2.0) % Neut # (Auto) (1.8-7.7) th/mm3 Lymph # (Auto) (1.0-4.8) th/mm3 [place] # (Auto) (0.0-0.9) th/mm3 Eos # (Auto) (0.0-0.4) th/mm3 Baso # (Auto) (0.0-0.2) th/mm3 WBC Differential Differential Comment Sodium 128 L (136-145) meq/L Potassium 2.7 L* (3.5-5.1) meq/L Chloride 89 L (98-107) meq/L Carbon Dioxide 26.2 (21.0-32.0) meq/L Anion Gap 13 (5-15) meq/L BUN 7 (7-18) mg/dL Creatinine 0.73 (0.50-1.00) mg/dL Estimated GFR 82 L (>89) mL/min Random Glucose 120 H (74-106) mg/dL Calcium 8.3 L (8.5-10.1) mg/dL Magnesium (1.5-2.5) mg/dL Total Bilirubin 1.0 (0.2-1.0) mg/dL AST 39 H (15-37) U/L ALT 46 (10-53) U/L Alkaline Phosphatase 74 (45-117) U/L Troponin I 0.04 (0.02-0.05) ng/mL Total Protein 6.4 D (6.4-8.2) g/dL Albumin 3.5 (3.4-5.0) g/dL Lipase (73-393) U/L Urine Color Yellow (Yellw/Straw) Urine Clarity Clear (Clear) Urine pH 7.0 (5.0-8.5) Ur Specific [place] Less/equal 1.005 (1.002-1.035) Urine Protein Negative (Neg-Trace) mg/dL Urine Glucose (UA) Negative (Negative) mg/dL Urine Ketones Negative (Negative) mg/dL Urine Occult Blood Negative (Negative) Urine Nitrate Positive H (Negative) Urine Bilirubin Negative (Negative) Urine Urobilinogen 0.2 (Less than 2) mg/dL Ur Leukocyte Esterase Trace H (Negative) Urine WBC 0-5 (0-5) /hpf Ur Squamous Epith Cells 0-5 (0-5) /hpf Urine Bacteria Many H (None) /hpf Micro UA Comment Culture indicated Ur Microscopic Review Microscopic reviewed Urine Culture Comments Culture indicated Urine Opiates Screen Neg (Neg) Ur Barbiturates Screen Neg (Neg) Ur Amphetamines Screen Neg (Neg) U Benzodiazepines Scrn Neg (Neg) Urine Cocaine Screen Neg (Neg) U Cannabinoids Screen Neg (Neg) Serum Alcohol (0-5) mg/dL Imaging Data Radiologist's impression: Chest X-Ray 03/25/18 23:49 CONCLUSION: The lungs are clear. ECG Data EKG Prior to Arrival: No Attestation: I personally reviewed and interpreted this ECG as follows: (EKG: Sinus rhythm rate 85 severe baseline artifact no acute ST elevation injury pattern change noted) Discharge Plan Discharge Disposition Patient Disposition: ED Admit(ED Internal Use Only) Discharge Order Discharge Orders: ED Use Only Admit Order (Routine); Ordered 03/26/18 Ordered By: Pooja Jimenez Discharge Details Diagnosis: Chest pain, Hypokalemia, UTI (urinary tract infection) Physicians Team ED Provider: Pooja Jimenez Primary Care Provider: Primary Care Ladonna Wallace Attending Provider: Aimee Zuleta Status ED Status: Admitted Observation Patient
[2018-03-26 06:39] LABS: Potassium 3.2 meq/L (3.5-5.1)
[2018-03-26 06:49] LABS: Troponin I 0.03 ng/mL (0.02-0.05)
--- NOTE | 2018-03-26 08:51 | P.HPIM ---
History of Present Illness Chief Complaint: Chest discomfort History of Present Illness: 58-year-old female with known history of hypertension, hyperlipidemia, anxiety, alcohol abuse who was recently discharged from the hospital for alcohol withdrawal on 03/22/18. Patient was at home in her normal state of health when yesterday she was sleeping and when she woke up her boyfriend was in the middle of a seizure. Because she was witnessing that she started developing her heart racing and pounding in her chest and started developing a pressure type sensation in her chest and then a heaviness like an elephant was sitting on her chest. She indicates that she had associated nausea, vomiting, diaphoresis, lightheadedness, dizziness, shortness of breath, dyspnea. Patient agreed to every symptom that was asked to her. Patient did have workup on her last visit with multiple troponin and EKGs which were unremarkable. Patient does have increased risk factors for underlying cardiac disease. Patient denies any previous cardiac workup. Currently the patient appears to be very anxious and she denies any active chest pain at this time. Upon workup in emergency department patient was found to have electrolyte abnormalities with hyponatremia, hypokalemia. Patient indicates that she has been drinking increased amount of water since she is not drinking alcohol anymore. Review of Systems Review of Systems: all other systems reviewed are negative Cardiovascular: Reports chest pain, Reports diaphoresis, Reports rapid heart rate, Reports lightheadedness and Reports dyspnea PMFSH History History Provided By: Patient Medical History Medical History Alcohol abuse (Acute) Hyperlipidemia (Acute) Bilateral tinnitus (Acute) Hypertension (Acute) Mass in chest (Acute) Surgical History Surgical History History of right inguinal hernia repair (Acute) History of tonsillectomy (Acute) Hx of breast reduction, elective (Acute) Social History Social History Substance History: No History of Abuse Second Hand Smoke Exposure: Yes Smoking Status: Former smoker Tobacco Type: Cigarettes Packs Per Day: 0.5 Cigarettes Per Day: 10.0 How Often Do You Have a Drink Containing Alcohol: 4 or more times a week Recent Travel in [facility] within the Last 8 Weeks: No Recent Out of Country Travel within the Last 8 Weeks: No Immunization History Tetanus Immunization: Unsure Medications and Allergies Allergies Allergy/AdvReac Type Severity Reaction Status Date / Time No Known Allergies Allergy Unverified 03/20/18 21:53 Home Medications Medication Instructions Recorded Confirmed Type propranolol 10 mg PO DAILY 03/20/18 03/25/18 History isosorbide mononitrate 30 mg PO DAILY 03/21/18 03/25/18 History trazodone 50 mg PO DAILY 03/25/18 03/25/18 History Active Medications: Active Medications Acetaminophen (Tylenol) 650 mg PO Q4H PRN PRN Reason: Temp > 100.4 Al Hydroxide/Mg Hydroxide (Milk Of Magnesia Liq) 30 ml PO Q12H PRN PRN Reason: Mild Constipation Bisacodyl (Dulcolax Supp) 10 mg RECTAL DAILY PRN PRN Reason: SEVERE CONSITIPATION Flumazenil (Romazecon Inj) 0.2 mg IV.PUSH Q1M PRN PRN Reason: OVERSEDATION Folic Acid (Folic Acid) 1 mg PO DAILY SANIYA Stop: 03/31/18 08:59 Haloperidol Lactate (Haldol Inj) 1 mg IV.PUSH Q15M PRN PRN Reason: for severe agitation Sodium Chloride (Ns Inj) 1,000 mls @ 125 mls/hr IV.CONT .Q8H SANIYA Last Infusion: 03/26/18 06:23 Dose: Infused Ceftriaxone Sodium 1,000 mg/ (Sodium Chloride) 100 mls @ 200 mls/hr IV.SIG Q24H SANIYA Isosorbide Mononitrate (Imdur) 30 mg PO DAILY SANIYA Lactulose (Lactulose Liq) 30 ml PO DAILY PRN PRN Reason: SEVERE CONSITIPATION Levothyroxine Sodium (Synthroid) 25 mcg PO DAILY@0600 SANIYA Lorazepam (Ativan Inj) 1 mg IV.PUSH Q4H PRN PRN Reason: for CIWA 8-10 Lorazepam (Ativan Inj) 2 mg IV.PUSH Q15M PRN PRN Reason: for CIWA > 20 Lorazepam (Ativan Inj) 2 mg IV.PUSH Q1H PRN PRN Reason: for CIWA 15-20 Lorazepam (Ativan Inj) 2 mg IV.PUSH Q2H PRN PRN Reason: for CIWA 11-14 Lorazepam (Ativan) 1 mg PO Q4H PRN PRN Reason: for CIWA 8-10 Lorazepam (Ativan) 2 mg PO Q2H PRN PRN Reason: for CIWA 11-14 Multivitamins/Minerals (Theragran-M) 1 tab PO DAILY [facility] Stop: 03/31/18 08:59 Ondansetron HCl (Zofran Inj) 4 mg IV.PUSH Q6H PRN PRN Reason: NAUSEA OR VOMITING Pravastatin Sodium (Pravachol) 40 mg PO DAILY [facility] Propranolol HCl (Inderal) 10 mg PO DAILY [facility] Senna/Docusate Sodium (Nayely-Colace) 1 tab PO BID [facility] Sennosides (Senokot) 17.2 mg PO Q12H PRN PRN Reason: Moderate Constipation Sodium Chloride (Ns Flush) 2 ml IV.FLUSH BID SANIYA Sodium Chloride (Ns Flush) 2 ml IV.FLUSH PRN PRN PRN Reason: FLUSH AFTER USING IV ACCESS Thiamine HCl (Vitamin B1) 100 mg PO DAILY [facility]IYA Trazodone HCl (Desyrel) 50 mg PO DAILY [facility] Physical Exam Vital signs: GENERAL: Well-developed, well-nourished, in no acute distress. alert and orientated HEENT: Head is normocephalic without any lesions or masses noted. Facial features are symmetric. Eyes: Pupils equal round reactive to light. Extraocular muscles are intact. Conjunctivae were clear. Oropharyngeal: Pharynx without any erythema edema. Tongue is midline without deviation. Buccal mucosa is moist without any masses or lesions NECK: Supple without any masses. Trachea midline no deviation. No JVD, no bruits are appreciated CARDIAC: Regular rhythm, regular rate. S1/S2 are heard. No murmurs gallops or rubs. LUNGS: Clear to auscultation bilaterally. No wheeze, rhonchi or rales. No use of accessory muscles on inspiration or expiration. ABDOMEN: Soft, nontender. Nondistended. Bowel sounds heard in all 4 quadrants. No organomegaly or masses. Negative rebound, negative guarding EXTREMITIES: No edema, pulses are equal bilaterally. No cyanosis or clubbing NEUROLOGY: Mood and affect, patient appears to be histrionic and anxious. Cranial nerves II through XII grossly intact. Muscle strength 5/5 in upper and lower extremities bilaterally. Deep tendon reflexes are 2+ in upper and lower extremities bilaterally. Last Vital Signs Temp 97.2 F L 03/26/18 08:00 Pulse 68 03/26/18 08:00 Resp 21 03/26/18 08:00 BP 130/76 03/26/18 08:00 Pulse Ox 99 03/26/18 08:00 Intake & Output 03/24/18 03/25/18 03/26/18 03/27/18 06:59 06:59 06:59 06:59 Intake Total 1820 / 1820 480 / 480 Output Total 500 / 500 900 / 900 Balance 1320 / 1320 -420 / -420 Weight 65.771 kg Results Labs CBC & Chem 7: 03/26/18 00:00 03/26/18 05:20 Imaging Impressions Chest X-Ray 03/25/18 23:49 CONCLUSION: The lungs are clear. Caprini VTE Risk Assessment Caprini VTE Risk Assessment: No/Low Risk (score <= 1) Caprini Risk Assessment Model: Point Value = 1 Point Value = 2 Point Value = 3 Point Value = 5 Age 41-60 Minor surgery BMI > 25 kg/m2 Swollen legs Varicose veins or History of unexplained or recurrent spontaneous Oral contraceptives or hormone replacement Sepsis (< 1 month) Serious lung disease, including pneumonia (< 1 month) Abnormal pulmonary function Acute myocardial infarction Congestive heart failure (< 1 month) History of inflammatory bowel disease Medical patient at bed rest Age 61-74 Arthroscopic surgery Major open surgery (> 45 min) Laparoscopic surgery (> 45 min) Malignancy Confined to bed (> 72 hours) Immobilizing plaster cast Central venous access Age >= 75 History of VTE Family history of VTE Factor V Leiden Prothrombin [id number] Lupus anticoagulant Anticardiolipin antibodies Elevated serum homocysteine Heparin-induced thrombocytopenia Other congenital or acquired thrombophilia Stroke (< 1 month) Elective arthroplasty Hip, pelvis, or leg fracture Acute spinal cord injury (< 1 month) Prophylaxis Regimen: Total Risk Factor Score Risk Level Prophylaxis Regimen 0-1 Low Early ambulation 2 Moderate Order ONE of the following: *Sequential Compression Device (SCD) *Heparin 5000 units SQ BID 3-4 Higher Order ONE of the following medications: *Heparin 5000 units SQ TID *Enoxaparin/Lovenox 40 mg SQ daily (WT < 150 kg, CrCl > 30 mL/min) *Enoxaparin/Lovenox 30 mg SQ daily (WT < 150 kg, CrCl > 10-29 mL/min) *Enoxaparin/Lovenox 30 mg SQ BID (WT < 150 kg, CrCl > 30 mL/min) AND/OR *Sequential Compression Device (SCD) 5 or more Highest Order ONE of the following medications: *Heparin 5000 units SQ TID (Preferred with Epidurals) *Enoxaparin/Lovenox 40 mg SQ daily (WT < 150 kg, CrCl > 30 mL/min) *Enoxaparin/Lovenox 30 mg SQ daily (WT < 150 kg, CrCl > 10-29 mL/min) *Enoxaparin/Lovenox 30 mg SQ BID (WT < 150 kg, CrCl > 30 mL/min) AND *Sequential Compression Device (SCD) Assessment and Plan Plan Chest pain -Patient with increased risk factors to include age, hypertension, hyper lipidemia, tobacco use, family history of heart disease -Patient has been ruled out for acute coronary event with serial cardiac enzymes that are negative -Serial EKGs show sinus rhythm without any changes -Unable to pursue any type of stress testing at this time, patient had breakfast with caffeine -We will anticipate myocardial perfusion study tomorrow morning to rule out any underlying ischemia -Patient continued on aspirin, beta-travis, Imdur, statin -Continue monitor telemetry Urinary tract infection -Continue on Rocephin -Monitor urine culture for appropriate antibiotics Hypertension, hyperlipidemia -Continue home medications Anxiety -Continue home medications History of alcohol abuse -Patient was just discharged from the hospital 3 days ago for alcohol withdrawal. Patient states that she has not had any alcohol in over a week -We will continue thiamine and folic acid -Continue to monitor CIWA score, -We will add medications if needed DVT prevention -Sequential compression devices
[2018-03-26] MEDS: Senna/Docusate Sodium 8.6/50 MG Tablet PO SCH ×2 (09:21→20:19)
[2018-03-26] MEDS: traZODone 50 MG Tablet PO SCH (09:22)
[2018-03-26] MEDS: Multivitamin/Minerals Therapeutic Tablet PO SCH (09:23)
[2018-03-26] MEDS: Folic Acid 1 MG Tablet PO SCH (09:24)
[2018-03-26] MEDS: Propranolol 10 MG Tablet PO SCH (09:24)
[2018-03-26] MEDS: Isosorbide Mononitrate 30 MG ER 24HR Tablet (Imdur) PO SCH (09:24)
[2018-03-26 13:42] LABS: Calcium 7.2 mg/dL (8.5-10.1); Potassium 3.2 meq/L (3.5-5.1); Troponin I 0.02 ng/mL (0.02-0.05)
[2018-03-27] MEDS ORDERED: LORazepam 0.5 MG Tablet PO ONE (00:45)
[2018-03-27 07:42] LABS: Baso % (Auto) 0.4 % (0.0-2.0); Eos # (Auto) 0.2 th/mm3 (0.0-0.4); Eos % (Auto) 3.5 % (0.0-4.0); Hematocrit 38.7 % (35.0-46.0); Hemoglobin 12.7 gm/dL (11.6-15.3); Lymph # (Auto) 2.4 th/mm3 (1.0-4.8); Lymph % (Auto) 40.4 % (9.0-44.0); Mean Corpuscular HGB Conc 32.8 % (32.0-36.0); Mean Corpuscular Hemoglobin 31.6 pg (27.0-34.0); Mean Corpuscular Volume 96.3 fL (80.0-100.0); Mean Platelet Volume 7.8 fL (7.0-11.0); Mono # (Auto) 1.1 th/mm3 (0.0-0.9); Mono % (Auto) 17.3 % (0.0-8.0); Neut # (Auto) 2.4 th/mm3 (1.8-7.7); Neut % (Auto) 38.4 % (16.0-70.0); Platelet Count 323 th/mm3 (150-450); Red Blood Count 4.02 mil/mm3 (4.00-5.30); Red Cell Distribution Width 13.4 % (11.6-17.2); White Blood Count 6.1 th/mm3 (4.0-11.0)
--- NOTE | 2018-03-27 07:56 | P.PNIM ---
Subjective Interval history: 58-year-old female who is seen examined today for follow-up on chest pain, hypokalemia. Patient is doing much better at this time. She states that she has not had any recurrent chest pain. Vital signs are stable. Patient remains afebrile. Physical Exam Vital signs: Last Vital Signs Temp 98.4 F 03/27/18 00:00 Pulse 70 03/27/18 04:06 Resp 18 03/27/18 00:00 BP 126/85 03/27/18 00:00 Pulse Ox 98 03/27/18 00:00 Intake & Output 03/25/18 03/26/18 03/27/18 03/28/18 06:59 06:59 06:59 06:59 Intake Total 1820 / 1820 3424 / 3424 Output Total 500 / 500 1701 / 1701 Balance 1320 / 1320 1723 / 1723 Weight 65.771 kg 65.771 kg Narrative: GENERAL: Well-developed, well-nourished, in no acute distress. alert and orientated HEENT: Head is normocephalic without any lesions or masses noted. Facial features are symmetric. Eyes: Extraocular muscles are intact. Conjunctivae were clear. NECK: Supple without any masses. Trachea midline no deviation. No JVD, CARDIAC: Regular rhythm, regular rate. S1/S2 are heard. No murmurs gallops or rubs. LUNGS: Clear to auscultation bilaterally. No wheeze, rhonchi or rales. No use of accessory muscles on inspiration or expiration. ABDOMEN: Soft, nontender. Nondistended. Bowel sounds heard in all 4 quadrants. No organomegaly or masses. Negative rebound, negative guarding EXTREMITIES: No edema, pulses are equal bilaterally. No cyanosis or clubbing NEUROLOGY: Mood and affect appear very anxious and histrionic. Cranial nerves II through XII grossly intact. Moving all extremities, speech is clear Results Labs CBC & Chem 7: 03/27/18 07:00 03/27/18 07:00 Assessment and Plan Plan Chest pain -Patient with increased risk factors to include age, hypertension, hyper lipidemia, tobacco use, family history of heart disease -Patient has been ruled out for acute coronary event with serial cardiac enzymes that are negative -Serial EKGs show sinus rhythm without any changes -Myocardial perfusion study was performed and indicated small borderline area of ischemia in the apical inferior wall, low risk -Patient continued on aspirin, beta-travis, Imdur, statin -Continue monitor telemetry -Discussed with patient stress test results and notify her to follow-up with his biomedical doctor and possible consultation with cardiology for continued monitoring and management Urinary tract infection -Continue on Rocephin -Monitor urine culture for appropriate antibiotics Hypertension, hyperlipidemia -Continue home medications Anxiety -Continue home medications History of alcohol abuse -Patient was just discharged from the hospital 3 days ago for alcohol withdrawal. Patient states that she has not had any alcohol in over a week -Continue thiamine and folic acid -Continue to monitor CIWA score, -Patient does not have any symptoms indicating alcohol withdrawal DVT prevention -Sequential compression devices Discharge disposition Discharge home in stable condition Activity: Ad belia. Diet: Healthy heart diet Medication per medication reconciliation Follow-up with primary medical doctor in 1 week Progress Note: Quality VTE Deep Vein Thrombosis/Pulmonary Embolism Present on Admission: No
[2018-03-27 08:04] LABS: Albumin 3.3 g/dL (3.4-5.0); Calcium 7.3 mg/dL (8.5-10.1); Carbon Dioxide 24.5 meq/L (21.0-32.0)
[2018-03-27] MEDS: Senna/Docusate Sodium 8.6/50 MG Tablet PO SCH (09:53)
[2018-03-27] MEDS: Propranolol 10 MG Tablet PO SCH (09:53)
[2018-03-27] MEDS: Multivitamin/Minerals Therapeutic Tablet PO SCH (09:53)
[2018-03-27] MEDS: Isosorbide Mononitrate 30 MG ER 24HR Tablet (Imdur) PO SCH (09:53)
[2018-03-27] MEDS: Folic Acid 1 MG Tablet PO SCH (09:53)
[2018-03-27] MEDS: traZODone 50 MG Tablet PO SCH (09:55)
[2018-03-27 12:21] VITALS: BP 162/85; PULSE 78; RESP 15; TEMP 98; O2SAT 97
[2018-03-27] MEDS ORDERED: Regadenoson Inj 0.4 MG/5 ML Syringe IV.PUSH ONE (12:39)
--- NOTE | 2018-03-27 13:40 | NM ---
EXAM DATE: 03/27/2018 1:32 PM EST AGE/SEX: 58 years / Female INDICATIONS:Angina. . Chest pressure. CLINICAL DATA: This is the patient's initial encounter. Patient reports that signs and symptoms have been present for 2 days and indicates a pain score of 2/10. MEDICAL/SURGICAL HISTORY: Hypertension. . Breast reduction. COMPARISON: No prior exams available for comparison. DOSE: 8.7 mCi Tc 99m Myoview at rest 26.1 mCi [id number] at stress 0.4 mg Lexiscan STRESS SYMPTOMS: None. EJECTION FRACTION: 67 % TECHNIQUE: The patient underwent pharmacologic stress with infusion of prescribed dose. Continuous ECG tracing was monitored during stress. Gated SPECT imaging was performed after stress and conventi onal SPECT imaging was performed at rest. The examination was performed on a SPECT/CT scanner, both attenuation and non-corrected datasets were reviewed. FINDINGS: Distribution: The maximum perfused segment at stress is in the septal wall. Perfusion Study: There is a mild area of decreased activity on the stress images compared to the re st images at the apical portion the inferior wall. The difference is in the order of 10-20% which is borderline for ischemia. Gated Study: There are intact wall motion and wall thickening without hypokinetic or dyskinetic segm ents. The ejection fraction is calculated at 67%. RISK CATEGORY: Low (<1% Annual Motality Rate) CONCLUSION: Small borderline area of ischemia in the apical inferior wall. Electronically signed by: Christ Iglesias MD Board Certified Radiologist 03/27/2018 1:39 PM EST
--- NOTE | 2018-03-28 00:54 | ECG ---
Date Performed: 03/26/2018 Time Performed: 00:00:03 PTAGE: 58 years EKG: BASELINE ARTIFACT MAKES IT DIFFICULT TO DETERMINE NORMAL Sinus rhythm VS JUNCTIONAL RHYTHM NONSPECIFIC T-WAVE ABNORMALITY QTC APPEARS PROLONGED, MEASURED INCORRECTLY ABNO RMAL RHYTHM ECG INTERPRETATION BASED ON A DEFAULT AGE OF 40 YEARS PREVIOUS TRACING : 03/20/2018 21.48 Compared to previous tracing, possible junctional rh ythm DOCTOR: Real Gayle Interpretating Date/Time 03/28/2018 00:53:00
--- NOTE | 2018-03-28 08:49 | TR ---
Date Performed: 03/27/2018 Time Performed: 12:47:49 DOCTOR: David Corona DRUG LIST: CLINICAL HISTORY: ANGINA REASON FOR TEST: Angina REASON FOR ENDING: OBSERVATION: CONCLUSION: COMMENTS: Lexiscan stress test was performed under standard four minute protocol. Radionuclide was injected one minute prior to ending the test. No electrocardiographic abormalities were present t o suggest ischemia. Nuclear imaging and interpretation are pending.
== END 2018-03-27 15:28 | disposition home or self-care (01) ==
LOC: PHEDA 23:30 → PHED 23:30 → PH3 03-26 07:14
PROVIDERS: ADMIT Hospitalist; ATTEND Hospitalist
CPT/HCPCS: 71010; 71045; 78452; 80048; 80053; 80307; 81001; 82040; 82948; 82962; 83690; 83735; 84132; 84484; 85025; 85379; 87077; 87086; 87186; 90761; 90765; 90768; 90775; 90776; 93005; 93017; 96361; 96365; 96366; 96368; 96375; 96376; 99285; A9502; C9113; G0378; J0696; J1885; J2060; J2405; J2785; J3475; J3480; J7030; J7040; Q9969